=== PATIENT | male | born 1965 | race African-American/Black ===

== ENCOUNTER 2016-07-23 13:24 | Emergency (ER) | payer MEDICAID ==
[~2016-07-23] VITALS: Ht 172.7 cm; Wt 85.0 kg
[~2016-07-23 13:24] MED LIST: KEPPRA
[2016-07-23] MEDS ORDERED: FOLIC ACID 1 MG, THIAMINE HCL 100 MG, MVI, ADULT NO.1 10 ML in DEXTROSE 5% WATER 1,000 ML IV ONE ×4 (14:30)
[2016-07-23] MEDS ORDERED: SODIUM CHLORIDE 0.9% 1,000 ML IV ONE (14:30)
[2016-07-23 15:27] LABS: BASOPHILS % 0.7 % (0.0-2.0); EOSINOPHILS % 0.6 % (0.0-5.0); HEMOGLOBIN. 12.8 g/dL (14.0-18.0); LYMPHOCYTES % 46.1 % (20.0-50.0); MEAN CORPUSCULAR HEMOGLOBIN 33.2 pg (28.0-32.0); MEAN CORPUSCULAR HGB CONC 33.6 g/dL (31.0-37.0); MEAN CORPUSCULAR VOLUME 98.9 fL (80.0-94.0); MEAN PLATELET VOLUME 7.5 fl (7.4-10.4); MONOCYTES % 9.1 % (2.0-8.0); NEUTROPHILS % 43.5 % (40.0-76.0); PLATELET 175 x1000/uL (130-400); RED BLOOD CELL COUNT 3.85 mill/uL (4.7-6.1); RED CELL DISTRIBUTION WIDTH 16.7 % (11.6-14.6); WHITE BLOOD COUNT 3.4 x1000/uL (4.5-11.0)
[2016-07-23 15:30] LABS: CHLORIDE 110 mEq/L (98-107); INDEX HEMOLYSI 1 (1-3); INDEX ICTERIC 1 (1-4); INDEX LIPEMIC 1 (1-3)
[2016-07-23 15:39] LABS: ANION GAP 10; CALCIUM 8.5 mg/dL (8.5-10.1); CARBON DIOXIDE 29 mEq/L (21-32); UREA NITROGEN BLOOD 11 mg/dL (7-21); eGFR > 60 mL/min (>60)
[2016-07-23 15:46] LABS: ACETAMINOPHEN < 2 ug/mL (10-30)
[2016-07-23 15:55] LABS: ETHANOL BLOOD 391 mg/dL
[2016-07-23] MEDS ORDERED: PHENYTOIN SODIUM 1,000 MG in SODIUM CHLORIDE 0.9% 100 ML IV ONE (17:00)
[2016-07-23] MEDS ORDERED: PHENYTOIN SODIUM 1000MG in SODIUM CHLORIDE 0.9% 100ML IV NR (19:00)
[2016-07-23 20:07] LABS: *AMPHETAMINES SCREEN URINE NEGATIVE (NEGATIVE); *BARBITURATES SCREEN URINE NEGATIVE (NEGATIVE); *BENZODIAZEPINES SCREEN URINE NEGATIVE (NEGATIVE); *COCAINE SCREEN URINE NEGATIVE (NEGATIVE); CANNABINOID URINE SCREEN NEGATIVE (NEGATIVE); ECSTASY MDMA SCREEN URINE NEGATIVE (NEGATIVE); METHADONE URINE SCREEN NEGATIVE (NEGATIVE); OPIATES URINE SCREEN NEGATIVE (NEGATIVE); PHENCYCLIDINE URINE SCREEN NEGATIVE (NEGATIVE)
[2016-07-23 21:50] VITALS: BP 112/78
== END 2016-07-23 21:50 | disposition home or self-care (01) ==
LOC: ER 13:29
DX: G92 Toxic encephalopathy (principal); F10.129 Alcohol abuse with intoxication, unspecified; F17.200 Nicotine dependence, unspecified, uncomplicated; G40.909 Epilepsy, unspecified, not intractable, without status epilepticus; Y90.8 Blood alcohol level of 240 mg/100 ml or more; Z91.19 Patient's noncompliance with other medical treatment and regimen
CPT/HCPCS: 36415; 70450; 80048; 80185; 80305; 80329; 83735; 85025; 96365; 96366; 96367; 99285; G0482; J1165; J3411; J3490; J7030; J7070; 80307; J7050

== ENCOUNTER 2016-09-06 01:47 | Emergency (ER) | payer MEDICAID ==
[~2016-09-06] VITALS: Ht 167.6 cm; Wt 69.0 kg
[2016-09-06] MEDS ORDERED: LORAZEPAM 2MG/ML CPJ IV ONE (04:00)
[2016-09-06] MEDS ORDERED: LEVETIRACETAM 500MG PREMIX 100 ML IV ONE (04:00)
[2016-09-06 04:16] LABS: BASOPHILS % 0.9 % (0.0-2.0); EOSINOPHILS % 0.6 % (0.0-5.0); HEMATOCRIT. 41.1 % (42.0-52.0); HEMOGLOBIN. 13.7 g/dL (14.0-18.0); LYMPHOCYTES % 44.8 % (20.0-50.0); MEAN CORPUSCULAR HEMOGLOBIN 32.1 pg (28.0-32.0); MEAN CORPUSCULAR HGB CONC 33.4 g/dL (31.0-37.0); MEAN CORPUSCULAR VOLUME 96.1 fL (80.0-94.0); MEAN PLATELET VOLUME 7.3 fl (7.4-10.4); MONOCYTES % 3.5 % (2.0-8.0); NEUTROPHILS % 50.2 % (40.0-76.0); PLATELET 230 x1000/uL (130-400); RED BLOOD CELL COUNT 4.28 mill/uL (4.7-6.1); RED CELL DISTRIBUTION WIDTH 15.3 % (11.6-14.6); WHITE BLOOD COUNT 5.2 x1000/uL (4.5-11.0)
[2016-09-06 04:23] LABS: ALANINE AMINOTRANSFERASE 25 IU/L (13-61); ALBUMIN 3.7 g/dL (3.4-5.0); ANION GAP 20; CALCIUM 8.9 mg/dL (8.5-10.1); CARBON DIOXIDE 19 mEq/L (21-32); CHLORIDE 110 mEq/L (98-107); INDEX HEMOLYSI 1 (1-3); INDEX ICTERIC 1 (1-4); INDEX LIPEMIC 1 (1-3); UREA NITROGEN BLOOD 15 mg/dL (7-21); eGFR > 60 mL/min (>60)
[2016-09-06 06:01] VITALS: BP 104/64
== END 2016-09-06 06:01 | disposition home or self-care (01) ==
LOC: ER 04:05
DX: G40.89 Other seizures (principal); J45.909 Unspecified asthma, uncomplicated; F12.10 Cannabis abuse, uncomplicated; F17.200 Nicotine dependence, unspecified, uncomplicated
CPT/HCPCS: 36415; 80053; 85025; 96365; 96366; 96375; 99285; J1953; J2060; Z7610; 99284

== ENCOUNTER 2016-09-08 02:03 | Emergency (ER) | payer MEDICAID ==
[~2016-09-08] VITALS: Ht 167.6 cm; Wt 70.0 kg
[2016-09-08] MEDS ORDERED: ONDANSETRON HCL 4MG/2ML VIAL IV ONE (05:00)
[2016-09-08] MEDS ORDERED: LEVETIRACETAM 500MG PREMIX 100 ML IV ONE (05:00)
[2016-09-08] MEDS ORDERED: IBUPROFEN 600MG TABLET PO ONE (10:15)
[2016-09-08 10:35] VITALS: BP 110/69
== END 2016-09-08 12:09 | disposition home or self-care (01) ==
LOC: ER 02:05
DX: T51.0X1A Toxic effect of ethanol, accidental (unintentional), initial encounter (principal); G92 Toxic encephalopathy; I10 Essential (primary) hypertension; G40.909 Epilepsy, unspecified, not intractable, without status epilepticus; F32.9 Major depressive disorder, single episode, unspecified; F17.210 Nicotine dependence, cigarettes, uncomplicated; F12.10 Cannabis abuse, uncomplicated; Y90.8 Blood alcohol level of 240 mg/100 ml or more; Y92.488 Other paved roadways as the place of occurrence of the external cause
CPT/HCPCS: 36415; 96365; 96375; 99284; G0482; J1953; J2405; Z7610

== ENCOUNTER 2016-09-10 02:36 | Emergency (ER) | payer MEDICAID ==
[~2016-09-10] VITALS: Ht 167.6 cm; Wt 72.0 kg
[2016-09-10] MEDS ORDERED: LEVETIRACETAM 500MG TABLET PO ONE (06:15)
[2016-09-10 06:24] LABS: BASOPHILS % 0.6 % (0.0-2.0); EOSINOPHILS % 0.6 % (0.0-5.0); HEMATOCRIT. 38.1 % (42.0-52.0); HEMOGLOBIN. 12.8 g/dL (14.0-18.0); LYMPHOCYTES % 39.8 % (20.0-50.0); MEAN CORPUSCULAR HEMOGLOBIN 31.9 pg (28.0-32.0); MEAN CORPUSCULAR HGB CONC 33.6 g/dL (31.0-37.0); MEAN PLATELET VOLUME 7.7 fl (7.4-10.4); MONOCYTES % 8.6 % (2.0-8.0); NEUTROPHILS % 50.4 % (40.0-76.0); PLATELET 179 x1000/uL (130-400); RED BLOOD CELL COUNT 4.01 mill/uL (4.7-6.1); RED CELL DISTRIBUTION WIDTH 15.4 % (11.6-14.6); WHITE BLOOD COUNT 4.9 x1000/uL (4.5-11.0)
[2016-09-10 06:28] LABS: CLARITY URINE CLEAR (CLEAR); COLOR URINE YELLOW (YELLOW); GLUCOSE URINE NEGATIVE (NEGATIVE); KETONES URINE NEGATIVE (NEGATIVE); LEUKOCYTE ESTERASE URINE NEGATIVE (NEGATIVE); NITRITE URINE NEGATIVE (NEGATIVE); OCCULT BLOOD URINE TRACE (NEGATIVE); PH URINE 5.5 (4.5-8.0); PROTEIN URINE NEGATIVE (NEGATIVE); SPECIFIC GRAVITY URINE 1.004 (1.005-1.030); UROBILINOGEN URINE 0.2 E.U./dL (0.2-1.0)
[2016-09-10 06:34] LABS: ALANINE AMINOTRANSFERASE 27 IU/L (13-61); ALBUMIN 3.7 g/dL (3.4-5.0); ANION GAP 16; CALCIUM 9.5 mg/dL (8.5-10.1); CARBON DIOXIDE 27 mEq/L (21-32); CHLORIDE 106 mEq/L (98-107); INDEX HEMOLYSI 2 (1-3); INDEX ICTERIC 1 (1-4); INDEX LIPEMIC 1 (1-3); LIPASE 279 IU/L (73-393); UREA NITROGEN BLOOD 11 mg/dL (7-21); eGFR > 60 mL/min (>60)
[2016-09-10 06:45] LABS: BACTERIA URINE NONE SEEN; RBC URINE 0-2 /hpf (0-2); SQUAMOUS EPITHELIAL CELL URINE RARE /lpf (RARE/1+); WBC URINE 0-2 /hpf (0-2)
[2016-09-10 06:57] VITALS: BP 98/56
== END 2016-09-10 07:18 | disposition home or self-care (01) ==
LOC: ER 02:37
DX: R10.13 Epigastric pain (principal); J45.909 Unspecified asthma, uncomplicated; F17.200 Nicotine dependence, unspecified, uncomplicated
CPT/HCPCS: 36415; 80053; 81001; 83690; 85025; 99284; Z7610

== ENCOUNTER 2016-09-23 18:16 | Emergency (ER) | payer MEDICAID ==
[~2016-09-23] VITALS: Ht 175.3 cm; Wt 79.0 kg
[2016-09-23 19:11] VITALS: BP 123/68
[2016-09-23 19:33] LABS: EOSINOPHILS % 1.4 % (0.0-5.0); HEMATOCRIT. 38.7 % (42.0-52.0); LYMPHOCYTES % 45.3 % (20.0-50.0); MEAN CORPUSCULAR HEMOGLOBIN 31.8 pg (28.0-32.0); MEAN CORPUSCULAR HGB CONC 33.5 g/dL (31.0-37.0); MEAN PLATELET VOLUME 7.1 fl (7.4-10.4); MONOCYTES % 6.3 % (2.0-8.0); PLATELET 217 x1000/uL (130-400); RED BLOOD CELL COUNT 4.07 mill/uL (4.7-6.1); WHITE BLOOD COUNT 3.8 x1000/uL (4.5-11.0)
[2016-09-23 19:38] LABS: CHLORIDE 109 mEq/L (98-107)
[2016-09-23 19:40] LABS: INDEX HEMOLYSI 1 (1-3); INDEX ICTERIC 1 (1-4); INDEX LIPEMIC 1 (1-3); INR 1.1; PROTHROMBIN TIME 11.2 sec
[2016-09-23 19:41] LABS: CALCIUM 8.7 mg/dL (8.5-10.1)
[2016-09-23 19:45] LABS: ALANINE AMINOTRANSFERASE 17 IU/L (13-61); ALBUMIN 3.4 g/dL (3.4-5.0); ANION GAP 16; CARBON DIOXIDE 24 mEq/L (21-32); UREA NITROGEN BLOOD 11 mg/dL (7-21)
[2016-09-23 19:50] LABS: TROPONIN I < 0.02 ng/mL (0.00-0.04); eGFR > 60 mL/min (>60)
[2016-09-23] MEDS ORDERED: SODIUM CHLORIDE 0.45% 1,000 ML IV ONE (20:58)
[2016-09-23 21:12] LABS: CLARITY URINE CLEAR (CLEAR); COLOR URINE YELLOW (YELLOW); GLUCOSE URINE NEGATIVE (NEGATIVE); KETONES URINE NEGATIVE (NEGATIVE); LEUKOCYTE ESTERASE URINE NEGATIVE (NEGATIVE); NITRITE URINE NEGATIVE (NEGATIVE); OCCULT BLOOD URINE TRACE (NEGATIVE); PH URINE 5.5 (4.5-8.0); PROTEIN URINE NEGATIVE (NEGATIVE); SPECIFIC GRAVITY URINE 1.011 (1.005-1.030); UROBILINOGEN URINE 0.2 E.U./dL (0.2-1.0)
[2016-09-23 21:38] LABS: *AMPHETAMINES SCREEN URINE NEGATIVE (NEGATIVE); *BARBITURATES SCREEN URINE NEGATIVE (NEGATIVE); *BENZODIAZEPINES SCREEN URINE NEGATIVE (NEGATIVE); *COCAINE SCREEN URINE NEGATIVE (NEGATIVE); CANNABINOID URINE SCREEN NEGATIVE (NEGATIVE); ECSTASY MDMA SCREEN URINE NEGATIVE (NEGATIVE); METHADONE URINE SCREEN NEGATIVE (NEGATIVE); OPIATES URINE SCREEN NEGATIVE (NEGATIVE); PHENCYCLIDINE URINE SCREEN NEGATIVE (NEGATIVE)
[2016-09-23 21:47] LABS: SQUAMOUS EPITHELIAL CELL URINE FEW /lpf (RARE/1+)
[2016-09-23 21:48] LABS: BACTERIA URINE TRACE; WBC URINE 0-2 /hpf (0-2)
[2016-09-23 21:51] LABS: RBC URINE 0-2 /hpf (0-2)
== END 2016-09-23 21:36 | disposition left against medical advice (07) ==
LOC: ER 18:22
DX: M54.10 Radiculopathy, site unspecified (principal); E86.0 Dehydration; I10 Essential (primary) hypertension; G40.909 Epilepsy, unspecified, not intractable, without status epilepticus; J45.909 Unspecified asthma, uncomplicated; F32.9 Major depressive disorder, single episode, unspecified; D72.819 Decreased white blood cell count, unspecified; D64.9 Anemia, unspecified
CPT/HCPCS: 36415; 70450; 71010; 72125; 73110; 73130; 80053; 80305; 81001; 84484; 85025; 85610; 93005; 99285; G0482; Z7610

== ENCOUNTER 2016-10-12 01:49 | Emergency (ER) | payer MEDICAID ==
[~2016-10-12] VITALS: Ht 167.6 cm; Wt 73.0 kg
[2016-10-12] MEDS ORDERED: KETOROLAC 30MG/ML VIAL IV ONE (07:30)
[2016-10-12] MEDS ORDERED: LEVETIRACETAM 500MG PREMIX 100 ML IV ONE (07:30)
[2016-10-12] MEDS ORDERED: SODIUM CHLORIDE 0.9% 1,000 ML IV ONE (07:30)
[2016-10-12 10:43] VITALS: BP 127/76
[2016-10-12] MEDS ORDERED: LEVETIRACETAM 500MG in SODIUM CHLORIDE 0.9% 100ML IV NR (19:00)
== END 2016-10-12 14:00 | disposition home or self-care (01) ==
LOC: ER 07:19
DX: G40.909 Epilepsy, unspecified, not intractable, without status epilepticus (principal); R51 Headache; F17.210 Nicotine dependence, cigarettes, uncomplicated; F12.10 Cannabis abuse, uncomplicated
CPT/HCPCS: 96365; 96366; 96375; 99285; J1885; J1953; J7030; J7050

== ENCOUNTER 2016-10-17 01:06 | Emergency (ER) | payer MEDICAID ==
[~2016-10-17] VITALS: Ht 167.6 cm; Wt 74.0 kg
[2016-10-17] MEDS ORDERED: MORPHINE SULFATE 4 MG/ML CPJ (NOT FOR IM USE) IV STA (01:56)
[2016-10-17] MEDS ORDERED: ONDANSETRON HCL 4MG/2ML VIAL IV STA (01:56)
[2016-10-17] MEDS ORDERED: SODIUM CHLORIDE 0.9% 1,000 ML IV ONE (01:56)
[2016-10-17] MEDS ORDERED: LEVETIRACETAM 500MG PREMIX 100 ML IV ONE (02:00)
[2016-10-17] MEDS ORDERED: LORAZEPAM 2MG/ML CPJ IV ONE (02:00)
[2016-10-17 02:46] LABS: BASOPHILS % 0.8 % (0.0-2.0); EOSINOPHILS % 0.7 % (0.0-5.0); HEMATOCRIT. 39.9 % (42.0-52.0); HEMOGLOBIN. 13.6 g/dL (14.0-18.0); LYMPHOCYTES % 44.2 % (20.0-50.0); MEAN CORPUSCULAR HEMOGLOBIN 32.8 pg (28.0-32.0); MEAN CORPUSCULAR VOLUME 96.4 fL (80.0-94.0); MEAN PLATELET VOLUME 7.4 fl (7.4-10.4); MONOCYTES % 8.6 % (2.0-8.0); NEUTROPHILS % 45.7 % (40.0-76.0); PLATELET 162 x1000/uL (130-400); RED BLOOD CELL COUNT 4.14 mill/uL (4.7-6.1); RED CELL DISTRIBUTION WIDTH 16.5 % (11.6-14.6)
[2016-10-17 02:52] LABS: CHLORIDE 111 mEq/L (98-107)
[2016-10-17 03:01] LABS: CARBON DIOXIDE 26 mEq/L (21-32)
[2016-10-17 10:00] VITALS: BP 119/66
== END 2016-10-17 10:29 | disposition home or self-care (01) ==
LOC: ER 01:06
DX: R56.9 Unspecified convulsions (principal); F10.129 Alcohol abuse with intoxication, unspecified; I10 Essential (primary) hypertension; F12.10 Cannabis abuse, uncomplicated; W01.198A Fall on same level from slipping, tripping and stumbling with subsequent striking against other object, initial encounter; Y93.89 Activity, other specified; Y92.89 Other specified places as the place of occurrence of the external cause; Y99.8 Other external cause status
CPT/HCPCS: 36415; 70450; 71010; 80053; 85025; 96365; 96375; 99285; J1953; J2060; J2270; J2405; J7030; Z7610

== ENCOUNTER 2016-10-18 01:07 | Emergency (ER) | payer MEDICAID ==
[~2016-10-18] VITALS: Ht 167.6 cm; Wt 70.0 kg
[~2016-10-18 01:07] MED LIST changes: -KEPPRA; +KEPPRA PO
[2016-10-18 01:09] VITALS: BP 136/78
[2016-10-18 06:32] LABS: CHLORIDE 112 mEq/L (98-107)
[2016-10-18 06:35] LABS: EOSINOPHILS % 1.7 % (0.0-5.0); HEMATOCRIT. 36.9 % (42.0-52.0); HEMOGLOBIN. 12.7 g/dL (14.0-18.0); LYMPHOCYTES % 68.1 % (20.0-50.0); MEAN CORPUSCULAR HEMOGLOBIN 32.8 pg (28.0-32.0); MEAN CORPUSCULAR VOLUME 95.5 fL (80.0-94.0); MEAN PLATELET VOLUME 7.7 fl (7.4-10.4); MONOCYTES % 4.9 % (2.0-8.0); NEUTROPHILS % 24.3 % (40.0-76.0); PLATELET 165 x1000/uL (130-400); RED BLOOD CELL COUNT 3.86 mill/uL (4.7-6.1); RED CELL DISTRIBUTION WIDTH 16.3 % (11.6-14.6)
[2016-10-18 06:39] LABS: CARBON DIOXIDE 27 mEq/L (21-32)
[2016-10-18 07:07] LABS: ETHANOL BLOOD 351 mg/dL
[2016-10-18 08:19] LABS: CLARITY URINE CLEAR (CLEAR); COLOR URINE YELLOW (YELLOW); GLUCOSE URINE NEGATIVE (NEGATIVE); KETONES URINE NEGATIVE (NEGATIVE); LEUKOCYTE ESTERASE URINE NEGATIVE (NEGATIVE); NITRITE URINE NEGATIVE (NEGATIVE); OCCULT BLOOD URINE NEGATIVE (NEGATIVE); PH URINE 5.5 (4.5-8.0); PROTEIN URINE NEGATIVE (NEGATIVE); SPECIFIC GRAVITY URINE 1.008 (1.005-1.030); UROBILINOGEN URINE 0.2 E.U./dL (0.2-1.0)
[2016-10-18] MEDS ORDERED: SODIUM CHLORIDE 0.9% 1,000 ML IV ONE (08:25)
[2016-10-18 08:36] LABS: *AMPHETAMINES SCREEN URINE NEGATIVE (NEGATIVE); *BARBITURATES SCREEN URINE NEGATIVE (NEGATIVE); *BENZODIAZEPINES SCREEN URINE NEGATIVE (NEGATIVE); *COCAINE SCREEN URINE NEGATIVE (NEGATIVE); CANNABINOID URINE SCREEN NEGATIVE (NEGATIVE); METHADONE URINE SCREEN NEGATIVE (NEGATIVE); OPIATES URINE SCREEN NEGATIVE (NEGATIVE); PHENCYCLIDINE URINE SCREEN NEGATIVE (NEGATIVE)
== END 2016-10-18 09:37 | disposition left against medical advice (07) ==
LOC: ER 01:15
DX: R11.2 Nausea with vomiting, unspecified (principal); I10 Essential (primary) hypertension; J45.909 Unspecified asthma, uncomplicated
CPT/HCPCS: 36415; 80053; 80305; 81003; 85025; 96360; 99284; G0482; J7030; Z7610

== ENCOUNTER 2016-10-29 02:26 | Emergency (ER) | payer MEDICAID ==
[~2016-10-29] VITALS: Ht 167.6 cm; Wt 75.0 kg
[2016-10-29] MEDS: SODIUM CHLORIDE 0.9% 1,000 ML IV ONE (03:59)
[2016-10-29] MEDS: LORAZEPAM 2MG/ML CPJ IV ONE (04:08)
[2016-10-29] MEDS: LEVETIRACETAM 500MG PREMIX 100 ML IV ONE (04:08)
[2016-10-29] MEDS: FAMOTIDINE 20MG/2ML VIAL IV ONE (04:08)
[2016-10-29 04:09] LABS: PROTHROMBIN TIME 10.5 sec
[2016-10-29 04:12] LABS: HEMATOCRIT. 39.5 % (42.0-52.0); HEMOGLOBIN. 13.6 g/dL (14.0-18.0); MEAN CORPUSCULAR HEMOGLOBIN 32.3 pg (28.0-32.0); MEAN CORPUSCULAR VOLUME 94.3 fL (80.0-94.0); MEAN PLATELET VOLUME 8.3 fl (7.4-10.4); PLATELET 95 x1000/uL (130-400); RED BLOOD CELL COUNT 4.19 mill/uL (4.7-6.1); RED CELL DISTRIBUTION WIDTH 16.5 % (11.6-14.6)
[2016-10-29 04:16] LABS: CLARITY URINE CLEAR (CLEAR); COLOR URINE YELLOW (YELLOW); GLUCOSE URINE NEGATIVE (NEGATIVE); KETONES URINE NEGATIVE (NEGATIVE); LEUKOCYTE ESTERASE URINE NEGATIVE (NEGATIVE); NITRITE URINE NEGATIVE (NEGATIVE); OCCULT BLOOD URINE TRACE (NEGATIVE); PH URINE 5.5 (4.5-8.0); PROTEIN URINE 1+ (NEGATIVE); SPECIFIC GRAVITY URINE 1.006 (1.005-1.030); UROBILINOGEN URINE 0.2 E.U./dL (0.2-1.0)
[2016-10-29 04:18] LABS: AMMONIA 44 uMol/L (<32)
[2016-10-29 04:24] LABS: CARBON DIOXIDE 22 mEq/L (21-32); CHLORIDE 103 mEq/L (98-107); CREATINE KINASE 876 IU/L (39-308); ETHANOL BLOOD 266 mg/dL; TROPONIN I < 0.02 ng/mL (0.00-0.04)
[2016-10-29 04:25] LABS: BASOPHILS % 0.6 % (0.0-2.0); LYMPHOCYTES % 46.5 % (20.0-50.0); MONOCYTES % 11.3 % (2.0-8.0); NEUTROPHILS % 40.6 % (40.0-76.0)
[2016-10-29 04:26] LABS: PLATELET ESTIMATE DECREASED
[2016-10-29 04:27] LABS: *AMPHETAMINES SCREEN URINE NEGATIVE (NEGATIVE); *BARBITURATES SCREEN URINE NEGATIVE (NEGATIVE); *BENZODIAZEPINES SCREEN URINE NEGATIVE (NEGATIVE); *COCAINE SCREEN URINE NEGATIVE (NEGATIVE); CANNABINOID URINE SCREEN NEGATIVE (NEGATIVE); METHADONE URINE SCREEN NEGATIVE (NEGATIVE); OPIATES URINE SCREEN NEGATIVE (NEGATIVE); PHENCYCLIDINE URINE SCREEN NEGATIVE (NEGATIVE)
[2016-10-29 04:33] LABS: CARBAMAZEPINE < 0.5 ug/mL (4-12); PHENOBARBITAL < 2.1 ug/mL (15.0-40.0); PHENYTOIN < 0.4 ug/mL (10-20); VALPROIC ACID < 3.0 ug/mL (50-100)
[2016-10-29 05:30] VITALS: BP 118/84
== END 2016-10-29 07:21 | disposition home or self-care (01) ==
LOC: ER 02:27
DX: T51.0X1A Toxic effect of ethanol, accidental (unintentional), initial encounter (principal); K29.70 Gastritis, unspecified, without bleeding; M62.82 Rhabdomyolysis; I10 Essential (primary) hypertension; R07.9 Chest pain, unspecified; F17.200 Nicotine dependence, unspecified, uncomplicated; Y92.89 Other specified places as the place of occurrence of the external cause
CPT/HCPCS: 36415; 71010; 80053; 80156; 80165; 80184; 80185; 80305; 81001; 82140; 82550; 83880; 84443; 84484; 85025; 85610; 93005; 96365; 96375; 99285; G0482; J1953; J2060; J3490; J7030

== ENCOUNTER 2016-10-29 12:04 | Emergency (ER) | payer MEDICAID ==
[~2016-10-29] VITALS: Ht 170.2 cm; Wt 70.0 kg
[~2016-10-29 12:04] MED LIST changes: +KEPPRA; -KEPPRA PO
[2016-10-29 12:07] VITALS: BP 112/87
== END 2016-10-29 15:12 | disposition left against medical advice (07) ==
LOC: ER 12:10
DX: Z53.21 Procedure and treatment not carried out due to patient leaving prior to being seen by health care provider (principal)

== ENCOUNTER 2016-11-13 13:14 | Inpatient (IN) | payer MEDICAID ==
[~2016-11-13] VITALS: Ht 167.6 cm; Wt 64.4 kg
[~2016-11-13 13:14] MED LIST changes: -KEPPRA; +KEPPRA PO
[2016-11-13] MEDS ORDERED: NITROGLYCERIN OINT 1GM/INCH UDPKT TD STA (14:25)
[2016-11-13] MEDS ORDERED: ASPIRIN 81MG TABLET PO STA (14:25)
[2016-11-13 14:56] LABS: BASOPHILS % 1.2 % (0.0-2.0); EOSINOPHILS % 0.9 % (0.0-5.0); HEMATOCRIT. 36.8 % (42.0-52.0); HEMOGLOBIN. 12.4 g/dL (14.0-18.0); LYMPHOCYTES % 33.4 % (20.0-50.0); MEAN CORPUSCULAR HEMOGLOBIN 32.1 pg (28.0-32.0); MEAN CORPUSCULAR VOLUME 95.6 fL (80.0-94.0); MONOCYTES % 4.4 % (2.0-8.0); NEUTROPHILS % 60.1 % (40.0-76.0); PLATELET 241 x1000/uL (130-400); RED BLOOD CELL COUNT 3.86 mill/uL (4.7-6.1); RED CELL DISTRIBUTION WIDTH 17.7 % (11.6-14.6)
[2016-11-13 15:02] LABS: CHLORIDE 109 mEq/L (98-107)
[2016-11-13 15:03] LABS: INR 1.1; PARTIAL THROMBOPLASTIN TIME 29.9 sec (24.0-34.0)
[2016-11-13 15:05] LABS: CARBON DIOXIDE 26 mEq/L (21-32)
[2016-11-13 15:08] LABS: ETHANOL BLOOD 213 mg/dL
[2016-11-13 15:15] LABS: CREATINE KINASE 447 IU/L (39-308); CREATINE KINASE MB FRACTION 0.8 ng/mL (0.5-3.6); TROPONIN I < 0.02 ng/mL (0.00-0.04)
[2016-11-13 22:15] VITALS: BP 135/94
[2016-11-13 22:17] VITALS: BP 135/94
[2016-11-13] MEDS ORDERED: CLONIDINE 0.1MG TABLET PO PRN (23:15)
[2016-11-13] MEDS ORDERED: ONDANSETRON HCL 4MG/2ML VIAL IV PRN (23:15)
[2016-11-13] MEDS ORDERED: LORAZEPAM 2MG/ML CPJ IV PRN (23:30)
[2016-11-13] MEDS ORDERED: MORPHINE SULFATE 4 MG/ML CPJ (NOT FOR IM USE) IV PRN (23:30)
[2016-11-13] MEDS: ZOLPIDEM TARTRATE 5MG TABLET PO PRN (23:47)
[2016-11-14 00:48] VITALS: BP 127/86
[2016-11-14 00:48] LABS: CREATINE KINASE 361 IU/L (39-308); CREATINE KINASE MB FRACTION 0.9 ng/mL (0.5-3.6); TROPONIN I < 0.02 ng/mL (0.00-0.04)
[2016-11-14 04:00] VITALS: BP 116/71
[2016-11-14 06:30] LABS: HEMATOCRIT 33.9 % (42.0-52.0); HEMOGLOBIN 11.6 g/dL (14.0-18.0); MEAN CORPUSCULAR HEMOGLOBIN 32.7 pg (28.0-32.0); MEAN CORPUSCULAR VOLUME 95.6 fL (80.0-94.0); PLATELET 228 x1000/uL (130-400); RED BLOOD CELL COUNT 3.55 mill/uL (4.7-6.1); RED CELL DISTRIBUTION WIDTH 17.1 % (11.6-14.6)
[2016-11-14 07:07] LABS: CARBON DIOXIDE 24 mEq/L (21-32); CHLORIDE 106 mEq/L (98-107); CREATINE KINASE 330 IU/L (39-308); TROPONIN I < 0.02 ng/mL (0.00-0.04)
[2016-11-14 08:00] VITALS: BP 111/69
[2016-11-14] MEDS: ASPIRIN 81MG TABLET PO SCH (08:06)
[2016-11-14] MEDS: LEVETIRACETAM 500MG TABLET PO SCH (08:06)
[2016-11-14] MEDS: ENOXAPARIN 40MG/0.4ML SYR SUBCUT SCH (08:07)
[2016-11-14 12:00] VITALS: BP 115/76
[2016-11-14 13:49] LABS: AMMONIA 23 uMol/L (<32)
[2016-11-14 16:00] VITALS: BP 118/80
[2016-11-14 20:00] VITALS: BP 116/76
[2016-11-14 21:38] LABS: *AMPHETAMINES SCREEN URINE NEGATIVE (NEGATIVE); *BARBITURATES SCREEN URINE NEGATIVE (NEGATIVE); *BENZODIAZEPINES SCREEN URINE PRESUMTIVE POSITIVE (NEGATIVE); *COCAINE SCREEN URINE NEGATIVE (NEGATIVE); CANNABINOID URINE SCREEN NEGATIVE (NEGATIVE); METHADONE URINE SCREEN NEGATIVE (NEGATIVE); OPIATES URINE SCREEN NEGATIVE (NEGATIVE); PHENCYCLIDINE URINE SCREEN NEGATIVE (NEGATIVE)
[2016-11-14] MEDS: ZOLPIDEM TARTRATE 5MG TABLET PO PRN (22:06)
[2016-11-15 00:28] VITALS: BP 125/88
[2016-11-15 04:00] VITALS: BP 129/86
[2016-11-15 08:00] VITALS: BP 126/84
[2016-11-15] MEDS: LEVETIRACETAM 500MG TABLET PO SCH (08:25)
[2016-11-15] MEDS: ENOXAPARIN 40MG/0.4ML SYR SUBCUT SCH (08:25)
[2016-11-15] MEDS: ASPIRIN 81MG TABLET PO SCH (08:25)
[2016-11-15 11:38] VITALS: BP 106/68
[2016-11-15 15:19] VITALS: BP 106/68
== END 2016-11-15 16:00 | disposition home or self-care (01) | DRG 775 ==
LOC: ER 13:24 → EDBEDREQ 15:13 → 5WST 19:50 → ENRESERV 20:26
PROVIDERS: ADMIT Hospitalist; ATTEND Hospitalist
DX: F10.229 Alcohol dependence with intoxication, unspecified (principal); F10.239 Alcohol dependence with withdrawal, unspecified; I10 Essential (primary) hypertension; R07.89 Other chest pain; F12.90 Cannabis use, unspecified, uncomplicated; F17.200 Nicotine dependence, unspecified, uncomplicated; G40.909 Epilepsy, unspecified, not intractable, without status epilepticus; J45.909 Unspecified asthma, uncomplicated; T51.0X1A Toxic effect of ethanol, accidental (unintentional), initial encounter
CPT/HCPCS: 36415; 71010; 80048; 80053; 80305; 82140; 82550; 82553; 83690; 83735; 83880; 84484; 85025; 85027; 85610; 85730; 93005; 99285; G0482; J1650; J2270

== ENCOUNTER 2016-11-17 02:49 | Emergency (ER) | payer MEDICAID ==
[~2016-11-17] VITALS: Ht 165.1 cm; Wt 50.0 kg
[2016-11-17] MEDS ORDERED: SODIUM CHLORIDE 0.9% 1,000 ML IV ONE (04:24)
[2016-11-17] MEDS ORDERED: LEVETIRACETAM 500MG/5ML CUP PO ONE (04:30)
[2016-11-17] MEDS ORDERED: LORAZEPAM 2MG/ML CPJ IV ONE (04:30)
[2016-11-17 05:04] LABS: EOSINOPHILS % 1.6 % (0.0-5.0); HEMATOCRIT. 37.2 % (42.0-52.0); HEMOGLOBIN. 12.4 g/dL (14.0-18.0); LYMPHOCYTES % 47.4 % (20.0-50.0); MEAN CORPUSCULAR HEMOGLOBIN 31.8 pg (28.0-32.0); MEAN CORPUSCULAR VOLUME 95.7 fL (80.0-94.0); MEAN PLATELET VOLUME 7.3 fl (7.4-10.4); MONOCYTES % 8.1 % (2.0-8.0); NEUTROPHILS % 41.9 % (40.0-76.0); PLATELET 219 x1000/uL (130-400); RED BLOOD CELL COUNT 3.89 mill/uL (4.7-6.1); RED CELL DISTRIBUTION WIDTH 17.2 % (11.6-14.6)
[2016-11-17 05:23] LABS: CHLORIDE 108 mEq/L (98-107)
[2016-11-17 05:34] LABS: CARBON DIOXIDE 24 mEq/L (21-32); ETHANOL BLOOD 207 mg/dL
[2016-11-17 06:54] LABS: CLARITY URINE CLEAR (CLEAR); COLOR URINE YELLOW (YELLOW); GLUCOSE URINE NEGATIVE (NEGATIVE); KETONES URINE NEGATIVE (NEGATIVE); LEUKOCYTE ESTERASE URINE NEGATIVE (NEGATIVE); NITRITE URINE NEGATIVE (NEGATIVE); OCCULT BLOOD URINE TRACE (NEGATIVE); PROTEIN URINE NEGATIVE (NEGATIVE); SPECIFIC GRAVITY URINE 1.013 (1.005-1.030); UROBILINOGEN URINE 0.2 E.U./dL (0.2-1.0)
[2016-11-17 07:23] LABS: *AMPHETAMINES SCREEN URINE NEGATIVE (NEGATIVE); *BARBITURATES SCREEN URINE NEGATIVE (NEGATIVE); *BENZODIAZEPINES SCREEN URINE PRESUMTIVE POSITIVE (NEGATIVE); *COCAINE SCREEN URINE NEGATIVE (NEGATIVE); CANNABINOID URINE SCREEN NEGATIVE (NEGATIVE); METHADONE URINE SCREEN NEGATIVE (NEGATIVE); OPIATES URINE SCREEN NEGATIVE (NEGATIVE); PHENCYCLIDINE URINE SCREEN NEGATIVE (NEGATIVE)
[2016-11-17 17:41] VITALS: BP 140/86
== END 2016-11-17 18:00 | disposition home or self-care (01) ==
LOC: ER 02:49
DX: T51.0X1A Toxic effect of ethanol, accidental (unintentional), initial encounter (principal); R41.82 Altered mental status, unspecified; R45.851 Suicidal ideations; I10 Essential (primary) hypertension; J45.909 Unspecified asthma, uncomplicated; G40.909 Epilepsy, unspecified, not intractable, without status epilepticus; F12.10 Cannabis abuse, uncomplicated; Y90.7 Blood alcohol level of 200-239 mg/100 ml; Y92.488 Other paved roadways as the place of occurrence of the external cause
CPT/HCPCS: 36415; 70450; 71010; 80053; 80305; 80307; 80329; 81001; 85025; 93005; 96361; 96374; 99285; G0482; J2060; J7030; Z7610

== ENCOUNTER 2016-11-19 22:33 | Emergency (ER) | payer MEDICAID ==
[~2016-11-19] VITALS: Ht 175.3 cm; Wt 64.0 kg
[2016-11-20 00:34] LABS: HEMATOCRIT. 41.7 % (42.0-52.0); HEMOGLOBIN. 13.9 g/dL (14.0-18.0); MEAN CORPUSCULAR HEMOGLOBIN 32.3 pg (28.0-32.0); MEAN CORPUSCULAR VOLUME 96.9 fL (80.0-94.0); MEAN PLATELET VOLUME 7.6 fl (7.4-10.4); PLATELET 182 x1000/uL (130-400); RED CELL DISTRIBUTION WIDTH 17.9 % (11.6-14.6)
[2016-11-20 00:43] LABS: CLARITY URINE CLEAR (CLEAR); COLOR URINE YELLOW (YELLOW); GLUCOSE URINE NEGATIVE (NEGATIVE); KETONES URINE NEGATIVE (NEGATIVE); LEUKOCYTE ESTERASE URINE NEGATIVE (NEGATIVE); NITRITE URINE NEGATIVE (NEGATIVE); OCCULT BLOOD URINE TRACE (NEGATIVE); PH URINE 5.5 (4.5-8.0); PROTEIN URINE NEGATIVE (NEGATIVE); SPECIFIC GRAVITY URINE 1.005 (1.005-1.030); UROBILINOGEN URINE 0.2 E.U./dL (0.2-1.0)
[2016-11-20 00:58] LABS: *AMPHETAMINES SCREEN URINE NEGATIVE (NEGATIVE); *BARBITURATES SCREEN URINE NEGATIVE (NEGATIVE); *BENZODIAZEPINES SCREEN URINE PRESUMTIVE POSITIVE (NEGATIVE); *COCAINE SCREEN URINE NEGATIVE (NEGATIVE); CANNABINOID URINE SCREEN NEGATIVE (NEGATIVE); METHADONE URINE SCREEN NEGATIVE (NEGATIVE); OPIATES URINE SCREEN NEGATIVE (NEGATIVE); PHENCYCLIDINE URINE SCREEN NEGATIVE (NEGATIVE)
[2016-11-20 01:02] LABS: CARBON DIOXIDE 26 mEq/L (21-32); CHLORIDE 108 mEq/L (98-107)
[2016-11-20 01:16] LABS: ETHANOL BLOOD 317 mg/dL
[2016-11-20 01:22] LABS: PLATELET ESTIMATE NORMAL
[2016-11-20] MEDS ORDERED: ACETAMINOPHEN 325MG TABLET PO ONE ×2 (06:00→07:30)
[2016-11-20 07:38] VITALS: BP 126/84
== END 2016-11-20 08:04 | disposition home or self-care (01) ==
LOC: ER 22:43
DX: S09.90XA Unspecified injury of head, initial encounter (principal); F10.129 Alcohol abuse with intoxication, unspecified; J45.909 Unspecified asthma, uncomplicated; F12.90 Cannabis use, unspecified, uncomplicated; I10 Essential (primary) hypertension; Z59.0 Homelessness; W01.0XXA Fall on same level from slipping, tripping and stumbling without subsequent striking against object, initial encounter; Y93.89 Activity, other specified; Y92.89 Other specified places as the place of occurrence of the external cause; Y99.8 Other external cause status
CPT/HCPCS: 36415; 70450; 80053; 80305; 81001; 85025; 99285; G0482; Z7610

== ENCOUNTER 2016-11-20 12:40 | Emergency (ER) | payer MEDICAID ==
[~2016-11-20] VITALS: Ht 167.6 cm; Wt 70.0 kg
[2016-11-20] MEDS ORDERED: LEVETIRACETAM 500MG TABLET PO ONE (14:30)
[2016-11-20 17:26] VITALS: BP 102/71
== END 2016-11-20 17:27 | disposition home or self-care (01) ==
LOC: ER 12:41
DX: S00.83XA Contusion of other part of head, initial encounter (principal); F10.129 Alcohol abuse with intoxication, unspecified; R56.9 Unspecified convulsions; J45.909 Unspecified asthma, uncomplicated; I10 Essential (primary) hypertension; F12.10 Cannabis abuse, uncomplicated; F17.200 Nicotine dependence, unspecified, uncomplicated; X58.XXXA Exposure to other specified factors, initial encounter; Y93.89 Activity, other specified; Y99.8 Other external cause status; Y92.89 Other specified places as the place of occurrence of the external cause
CPT/HCPCS: 36415; 82962; 99284; G0482; Z7610

== ENCOUNTER 2016-11-20 22:46 | Emergency (ER) | payer MEDICAID ==
[~2016-11-20] VITALS: Ht 175.3 cm; Wt 68.0 kg
[2016-11-21 00:32] LABS: EOSINOPHILS % 1.1 % (0.0-5.0); HEMATOCRIT. 44.5 % (42.0-52.0); HEMOGLOBIN. 14.8 g/dL (14.0-18.0); LYMPHOCYTES % 53.4 % (20.0-50.0); MEAN CORPUSCULAR HEMOGLOBIN 31.9 pg (28.0-32.0); MEAN CORPUSCULAR VOLUME 95.9 fL (80.0-94.0); MEAN PLATELET VOLUME 7.2 fl (7.4-10.4); NEUTROPHILS % 37.5 % (40.0-76.0); PLATELET 205 x1000/uL (130-400); RED BLOOD CELL COUNT 4.64 mill/uL (4.7-6.1); RED CELL DISTRIBUTION WIDTH 17.7 % (11.6-14.6)
[2016-11-21 00:37] LABS: CLARITY URINE CLEAR (CLEAR); COLOR URINE YELLOW (YELLOW); GLUCOSE URINE NEGATIVE (NEGATIVE); KETONES URINE NEGATIVE (NEGATIVE); LEUKOCYTE ESTERASE URINE NEGATIVE (NEGATIVE); NITRITE URINE NEGATIVE (NEGATIVE); OCCULT BLOOD URINE NEGATIVE (NEGATIVE); PROTEIN URINE NEGATIVE (NEGATIVE); SPECIFIC GRAVITY URINE 1.005 (1.005-1.030); UROBILINOGEN URINE 0.2 E.U./dL (0.2-1.0)
[2016-11-21 00:43] LABS: CARBON DIOXIDE 28 mEq/L (21-32); CHLORIDE 108 mEq/L (98-107)
[2016-11-21 00:56] LABS: *AMPHETAMINES SCREEN URINE NEGATIVE (NEGATIVE); *BARBITURATES SCREEN URINE NEGATIVE (NEGATIVE); *BENZODIAZEPINES SCREEN URINE PRESUMTIVE POSITIVE (NEGATIVE); *COCAINE SCREEN URINE NEGATIVE (NEGATIVE); CANNABINOID URINE SCREEN NEGATIVE (NEGATIVE); METHADONE URINE SCREEN NEGATIVE (NEGATIVE); OPIATES URINE SCREEN NEGATIVE (NEGATIVE); PHENCYCLIDINE URINE SCREEN NEGATIVE (NEGATIVE)
[2016-11-21 01:17] LABS: ETHANOL BLOOD 321 mg/dL
[2016-11-21] MEDS ORDERED: LEVETIRACETAM 500MG TABLET PO ONE (02:30)
[2016-11-21] MEDS ORDERED: ACETAMINOPHEN 325MG TABLET PO ONE (03:30)
[2016-11-21 12:11] VITALS: BP 102/78
== END 2016-11-21 12:21 | disposition home or self-care (01) ==
LOC: ER 22:55
DX: R45.851 Suicidal ideations (principal); F10.129 Alcohol abuse with intoxication, unspecified; R45.850 Homicidal ideations; R44.1 Visual hallucinations; R44.0 Auditory hallucinations; F12.10 Cannabis abuse, uncomplicated; J45.909 Unspecified asthma, uncomplicated; I10 Essential (primary) hypertension; R56.9 Unspecified convulsions
CPT/HCPCS: 36415; 80048; 80305; 80307; 80329; 81003; 82542; 85025; 99284; G0482

== ENCOUNTER 2016-11-23 13:23 | Emergency (ER) | payer MEDICAID ==
[~2016-11-23] VITALS: Ht 165.1 cm; Wt 75.0 kg
[2016-11-23 14:27] LABS: BASOPHILS % 0.8 % (0.0-2.0); HEMOGLOBIN. 13.4 g/dL (14.0-18.0); LYMPHOCYTES % 51.2 % (20.0-50.0); MEAN CORPUSCULAR HEMOGLOBIN 32.8 pg (28.0-32.0); MEAN CORPUSCULAR VOLUME 95.4 fL (80.0-94.0); MONOCYTES % 7.7 % (2.0-8.0); NEUTROPHILS % 39.3 % (40.0-76.0); PLATELET 173 x1000/uL (130-400); RED BLOOD CELL COUNT 4.09 mill/uL (4.7-6.1); RED CELL DISTRIBUTION WIDTH 17.8 % (11.6-14.6)
[2016-11-23 14:31] LABS: CHLORIDE 113 mEq/L (98-107)
[2016-11-23 14:37] LABS: CARBON DIOXIDE 27 mEq/L (21-32)
[2016-11-23 14:52] LABS: ETHANOL BLOOD 318 mg/dL
[2016-11-23 14:58] LABS: INR 1.1; PROTHROMBIN TIME 11.9 sec
[2016-11-23 15:02] LABS: CLARITY URINE CLEAR (CLEAR); COLOR URINE YELLOW (YELLOW); KETONES URINE TRACE (NEGATIVE); LEUKOCYTE ESTERASE URINE NEGATIVE (NEGATIVE); NITRITE URINE NEGATIVE (NEGATIVE); OCCULT BLOOD URINE 1+ (NEGATIVE); PROTEIN URINE 1+ (NEGATIVE); SPECIFIC GRAVITY URINE 1.015 (1.005-1.030); UROBILINOGEN URINE 0.2 E.U./dL (0.2-1.0)
[2016-11-23 15:16] LABS: HEMATOCRIT 38.2 % (42.0-52.0); HEMOGLOBIN 13.2 g/dL (14.0-18.0); MEAN CORPUSCULAR HEMOGLOBIN 32.8 pg (28.0-32.0); MEAN CORPUSCULAR VOLUME 95.3 fL (80.0-94.0); PLATELET 171 x1000/uL (130-400); RED BLOOD CELL COUNT 4.01 mill/uL (4.7-6.1); RED CELL DISTRIBUTION WIDTH 17.8 % (11.6-14.6)
[2016-11-23] MEDS ORDERED: SODIUM CHLORIDE 0.9% 1,000 ML IV ONE (15:30)
[2016-11-23 15:31] LABS: *AMPHETAMINES SCREEN URINE NEGATIVE (NEGATIVE); *BARBITURATES SCREEN URINE NEGATIVE (NEGATIVE); *BENZODIAZEPINES SCREEN URINE PRESUMTIVE POSITIVE (NEGATIVE); *COCAINE SCREEN URINE NEGATIVE (NEGATIVE); CANNABINOID URINE SCREEN NEGATIVE (NEGATIVE); METHADONE URINE SCREEN NEGATIVE (NEGATIVE); OPIATES URINE SCREEN NEGATIVE (NEGATIVE); PHENCYCLIDINE URINE SCREEN NEGATIVE (NEGATIVE)
[2016-11-23 17:06] VITALS: BP 110/80
== END 2016-11-23 17:11 | disposition home or self-care (01) ==
LOC: ER 13:24
DX: F10.129 Alcohol abuse with intoxication, unspecified (principal); Y90.8 Blood alcohol level of 240 mg/100 ml or more; K29.20 Alcoholic gastritis without bleeding; R56.9 Unspecified convulsions; F17.210 Nicotine dependence, cigarettes, uncomplicated; Z88.0 Allergy status to penicillin
CPT/HCPCS: 36415; 80053; 80305; 81001; 83690; 85025; 85027; 85610; 96360; 99284; G0482; J7030

== ENCOUNTER 2016-11-24 11:24 | Emergency (ER) | payer MEDICAID ==
[~2016-11-24] VITALS: Ht 167.6 cm; Wt 73.0 kg
[2016-11-24 13:04] VITALS: BP 114/83
[2016-11-24 13:04] LABS: BASOPHILS % 0.7 % (0.0-2.0); EOSINOPHILS % 1.1 % (0.0-5.0); HEMATOCRIT. 36.8 % (42.0-52.0); HEMOGLOBIN. 12.5 g/dL (14.0-18.0); LYMPHOCYTES % 54.1 % (20.0-50.0); MEAN CORPUSCULAR HEMOGLOBIN 32.4 pg (28.0-32.0); MEAN CORPUSCULAR VOLUME 95.1 fL (80.0-94.0); MEAN PLATELET VOLUME 7.2 fl (7.4-10.4); MONOCYTES % 7.3 % (2.0-8.0); NEUTROPHILS % 36.8 % (40.0-76.0); PLATELET 157 x1000/uL (130-400); RED BLOOD CELL COUNT 3.87 mill/uL (4.7-6.1); RED CELL DISTRIBUTION WIDTH 17.7 % (11.6-14.6)
[2016-11-24 13:19] LABS: CARBON DIOXIDE 28 mEq/L (21-32); CHLORIDE 111 mEq/L (98-107)
[2016-11-24 13:25] LABS: ETHANOL BLOOD 305 mg/dL
== END 2016-11-24 16:03 | disposition home or self-care (01) ==
LOC: ER 11:28
DX: F10.129 Alcohol abuse with intoxication, unspecified (principal); R51 Headache; G40.909 Epilepsy, unspecified, not intractable, without status epilepticus; Z88.0 Allergy status to penicillin; Y90.8 Blood alcohol level of 240 mg/100 ml or more
CPT/HCPCS: 36415; 70450; 80053; 85025; 99285; G0482; Z7610

== ENCOUNTER 2016-11-25 16:42 | Emergency (ER) | payer MEDICAID ==
[~2016-11-25] VITALS: Ht 167.6 cm; Wt 77.0 kg
[2016-11-25 17:04] VITALS: BP 110/76
[2016-11-25] MEDS ORDERED: SODIUM CHLORIDE 0.9% 1,000 ML IV ONE (17:15)
[2016-11-25 17:21] LABS: BASOPHILS % 1.2 % (0.0-2.0); EOSINOPHILS % 0.9 % (0.0-5.0); HEMATOCRIT. 38.5 % (42.0-52.0); LYMPHOCYTES % 53.5 % (20.0-50.0); MEAN CORPUSCULAR HEMOGLOBIN 32.2 pg (28.0-32.0); MEAN CORPUSCULAR VOLUME 95.2 fL (80.0-94.0); MEAN PLATELET VOLUME 7.3 fl (7.4-10.4); MONOCYTES % 6.4 % (2.0-8.0); PLATELET 153 x1000/uL (130-400); RED BLOOD CELL COUNT 4.04 mill/uL (4.7-6.1)
[2016-11-25 17:22] LABS: CHLORIDE 107 mEq/L (98-107)
[2016-11-25 17:30] LABS: *AMPHETAMINES SCREEN URINE NEGATIVE (NEGATIVE); *BARBITURATES SCREEN URINE NEGATIVE (NEGATIVE); *COCAINE SCREEN URINE NEGATIVE (NEGATIVE); CANNABINOID URINE SCREEN NEGATIVE (NEGATIVE); METHADONE URINE SCREEN NEGATIVE (NEGATIVE); OPIATES URINE SCREEN NEGATIVE (NEGATIVE); PHENCYCLIDINE URINE SCREEN NEGATIVE (NEGATIVE)
[2016-11-25 17:31] LABS: CARBON DIOXIDE 31 mEq/L (21-32)
[2016-11-25 17:34] LABS: ETHANOL BLOOD 319 mg/dL
[2016-11-25 17:54] LABS: *BENZODIAZEPINES SCREEN URINE PRESUMTIVE POSITIVE (NEGATIVE)
[2016-11-25] MEDS ORDERED: ACETAMINOPHEN 325MG TABLET PO ONE (18:30)
== END 2016-11-25 20:12 | disposition home or self-care (01) ==
LOC: ER 16:56
DX: S00.83XA Contusion of other part of head, initial encounter (principal); W01.0XXA Fall on same level from slipping, tripping and stumbling without subsequent striking against object, initial encounter; Y93.89 Activity, other specified; Y92.89 Other specified places as the place of occurrence of the external cause; R51 Headache; I10 Essential (primary) hypertension; G40.909 Epilepsy, unspecified, not intractable, without status epilepticus; F10.10 Alcohol abuse, uncomplicated; Y90.8 Blood alcohol level of 240 mg/100 ml or more
CPT/HCPCS: 36415; 70450; 80048; 80305; 85025; 96360; 99285; G0482; J7030; Z7610

== ENCOUNTER 2016-12-03 03:14 | Emergency (ER) | payer MEDICAID ==
[~2016-12-03] VITALS: Ht 172.7 cm; Wt 63.0 kg
[2016-12-03] MEDS ORDERED: SODIUM CHLORIDE 0.9% 1,000 ML IV ONE (03:51)
[2016-12-03] MEDS ORDERED: ONDANSETRON HCL 4MG/2ML VIAL IV ONE (04:00)
[2016-12-03 04:26] LABS: CHLORIDE 101 mEq/L (98-107)
[2016-12-03 04:29] LABS: BASOPHILS % 0.7 % (0.0-2.0); EOSINOPHILS % 0.8 % (0.0-5.0); HEMATOCRIT. 37.7 % (42.0-52.0); HEMOGLOBIN. 12.7 g/dL (14.0-18.0); LYMPHOCYTES % 49.6 % (20.0-50.0); MEAN CORPUSCULAR HEMOGLOBIN 32.2 pg (28.0-32.0); MEAN CORPUSCULAR VOLUME 95.8 fL (80.0-94.0); MEAN PLATELET VOLUME 8.3 fl (7.4-10.4); MONOCYTES % 11.2 % (2.0-8.0); NEUTROPHILS % 37.7 % (40.0-76.0); PLATELET 75 x1000/uL (130-400); RED BLOOD CELL COUNT 3.93 mill/uL (4.7-6.1)
[2016-12-03 04:34] LABS: CARBON DIOXIDE 24 mEq/L (21-32)
[2016-12-03] MEDS ORDERED: KCL 20MEQ/100ML PREMIX 100 ML IV ONE (05:15)
[2016-12-03 05:19] LABS: ETHANOL BLOOD 335 mg/dL
[2016-12-03 08:14] LABS: CLARITY URINE CLEAR (CLEAR); COLOR URINE YELLOW (YELLOW); GLUCOSE URINE NEGATIVE (NEGATIVE); KETONES URINE NEGATIVE (NEGATIVE); LEUKOCYTE ESTERASE URINE NEGATIVE (NEGATIVE); NITRITE URINE NEGATIVE (NEGATIVE); OCCULT BLOOD URINE TRACE (NEGATIVE); PROTEIN URINE NEGATIVE (NEGATIVE); SPECIFIC GRAVITY URINE 1.005 (1.005-1.030); UROBILINOGEN URINE 0.2 E.U./dL (0.2-1.0)
[2016-12-03 08:30] LABS: *AMPHETAMINES SCREEN URINE NEGATIVE (NEGATIVE); *BARBITURATES SCREEN URINE NEGATIVE (NEGATIVE); *BENZODIAZEPINES SCREEN URINE PRESUMTIVE POSITIVE (NEGATIVE); *COCAINE SCREEN URINE NEGATIVE (NEGATIVE); CANNABINOID URINE SCREEN NEGATIVE (NEGATIVE); METHADONE URINE SCREEN NEGATIVE (NEGATIVE); OPIATES URINE SCREEN NEGATIVE (NEGATIVE); PHENCYCLIDINE URINE SCREEN NEGATIVE (NEGATIVE)
[2016-12-03 09:20] VITALS: BP 133/76
== END 2016-12-03 10:58 | disposition home or self-care (01) ==
LOC: ER 03:16
DX: F10.129 Alcohol abuse with intoxication, unspecified (principal); E87.6 Hypokalemia; I10 Essential (primary) hypertension; F17.210 Nicotine dependence, cigarettes, uncomplicated; F12.10 Cannabis abuse, uncomplicated; Z88.0 Allergy status to penicillin; Y90.8 Blood alcohol level of 240 mg/100 ml or more
CPT/HCPCS: 36415; 80053; 80305; 81001; 83690; 85025; 96361; 96365; 96375; 99284; G0482; J2405; J3480; J7030; J7040; Z7610

== ENCOUNTER 2016-12-03 14:57 | Emergency (ER) | payer MEDICAID ==
[~2016-12-03] VITALS: Ht 167.6 cm; Wt 73.0 kg
[2016-12-03] MEDS ORDERED: ONDANSETRON HCL 4MG/2ML VIAL IV STA (15:31)
[2016-12-03] MEDS ORDERED: PANTOPRAZOLE SODIUM 40 MG/VIAL IV STA (15:31)
[2016-12-03] MEDS ORDERED: SODIUM CHLORIDE 0.9% 1,000 ML IV ONE (15:31)
[2016-12-03 16:02] LABS: INR 1.1; PROTHROMBIN TIME 11.8 sec
[2016-12-03 16:04] LABS: BASOPHILS % 0.8 % (0.0-2.0); EOSINOPHILS % 0.8 % (0.0-5.0); HEMATOCRIT. 37.1 % (42.0-52.0); HEMOGLOBIN. 12.5 g/dL (14.0-18.0); LYMPHOCYTES % 53.5 % (20.0-50.0); MEAN CORPUSCULAR HEMOGLOBIN 32.3 pg (28.0-32.0); MEAN CORPUSCULAR VOLUME 96.1 fL (80.0-94.0); MEAN PLATELET VOLUME 7.8 fl (7.4-10.4); MONOCYTES % 11.8 % (2.0-8.0); NEUTROPHILS % 33.1 % (40.0-76.0); PLATELET 87 x1000/uL (130-400); RED BLOOD CELL COUNT 3.86 mill/uL (4.7-6.1); RED CELL DISTRIBUTION WIDTH 17.4 % (11.6-14.6)
[2016-12-03 16:13] LABS: CARBON DIOXIDE 25 mEq/L (21-32); CHLORIDE 108 mEq/L (98-107)
[2016-12-03 16:34] LABS: ETHANOL BLOOD 350 mg/dL
[2016-12-03] MEDS ORDERED: SODIUM CHLORIDE 0.9% 1000ML BAG (SEPSIS BOLUS) IV ONE (16:45)
[2016-12-03] MEDS ORDERED: SODIUM CHLORIDE 0.9% IV SCH (16:45)
[2016-12-03 17:40] LABS: CLARITY URINE CLEAR (CLEAR); COLOR URINE YELLOW (YELLOW); GLUCOSE URINE NEGATIVE (NEGATIVE); KETONES URINE NEGATIVE (NEGATIVE); LEUKOCYTE ESTERASE URINE NEGATIVE (NEGATIVE); NITRITE URINE NEGATIVE (NEGATIVE); OCCULT BLOOD URINE TRACE (NEGATIVE); PH URINE 5.5 (4.5-8.0); PROTEIN URINE NEGATIVE (NEGATIVE); SPECIFIC GRAVITY URINE 1.006 (1.005-1.030); UROBILINOGEN URINE 0.2 E.U./dL (0.2-1.0)
[2016-12-04 03:30] VITALS: BP 115/77
== END 2016-12-04 06:45 | disposition home or self-care (01) ==
LOC: ER 14:57
DX: F10.129 Alcohol abuse with intoxication, unspecified (principal); D61.818 Other pancytopenia; E86.0 Dehydration; F17.200 Nicotine dependence, unspecified, uncomplicated; F12.10 Cannabis abuse, uncomplicated; J45.909 Unspecified asthma, uncomplicated; I10 Essential (primary) hypertension; G40.909 Epilepsy, unspecified, not intractable, without status epilepticus; Z88.0 Allergy status to penicillin
CPT/HCPCS: 36415; 71010; 80053; 81001; 83605; 83690; 85025; 85610; 86850; 86900; 86901; 87040; 87086; 93005; 96361; 96374; 96375; 99285; C9113; G0482; J2405; J7030; Z7610

== ENCOUNTER 2016-12-05 14:58 | Emergency (ER) | payer MEDICAID ==
[~2016-12-05] VITALS: Ht 165.1 cm; Wt 59.0 kg
[2016-12-05 16:23] LABS: BASOPHILS % 0.8 % (0.0-2.0); EOSINOPHILS % 0.6 % (0.0-5.0); HEMATOCRIT. 34.9 % (42.0-52.0); HEMOGLOBIN. 11.8 g/dL (14.0-18.0); LYMPHOCYTES % 52.3 % (20.0-50.0); MEAN CORPUSCULAR HEMOGLOBIN 32.6 pg (28.0-32.0); MEAN CORPUSCULAR VOLUME 96.4 fL (80.0-94.0); MEAN PLATELET VOLUME 7.4 fl (7.4-10.4); MONOCYTES % 11.4 % (2.0-8.0); NEUTROPHILS % 34.9 % (40.0-76.0); PLATELET 105 x1000/uL (130-400); RED BLOOD CELL COUNT 3.62 mill/uL (4.7-6.1); RED CELL DISTRIBUTION WIDTH 17.1 % (11.6-14.6)
[2016-12-05] MEDS ORDERED: IBUPROFEN 600MG TABLET PO ONE (19:30)
[2016-12-05 19:58] VITALS: BP 104/72
== END 2016-12-05 21:29 | disposition home or self-care (01) ==
LOC: ER 15:15
DX: G89.29 Other chronic pain (principal); M54.5 Low back pain; J45.909 Unspecified asthma, uncomplicated; I10 Essential (primary) hypertension; F10.229 Alcohol dependence with intoxication, unspecified; F12.10 Cannabis abuse, uncomplicated; Z88.0 Allergy status to penicillin; W01.0XXA Fall on same level from slipping, tripping and stumbling without subsequent striking against object, initial encounter; Y93.89 Activity, other specified; Y92.89 Other specified places as the place of occurrence of the external cause; Y99.8 Other external cause status
CPT/HCPCS: 36415; 72100; 85025; 99285; G0482

== ENCOUNTER 2016-12-06 13:36 | Emergency (ER) | payer MEDICAID ==
[~2016-12-06] VITALS: Ht 167.6 cm; Wt 70.0 kg
[2016-12-06] MEDS ORDERED: FAMOTIDINE 20MG/2ML VIAL IV STA (14:05)
[2016-12-06] MEDS ORDERED: ONDANSETRON HCL 4MG/2ML VIAL IV STA (14:05)
[2016-12-06] MEDS ORDERED: SODIUM CHLORIDE 0.9% 1,000 ML IV ONE (14:05)
[2016-12-06] MEDS ORDERED: LEVETIRACETAM 500MG TABLET PO ONE (14:15)
[2016-12-06] MEDS ORDERED: FOLIC ACID 1 MG, THIAMINE HCL 100 MG, MVI, ADULT NO.1 10 ML in DEXTROSE 5% WATER 1,000 ML IV ONE ×4 (14:15)
[2016-12-06 14:31] LABS: BASOPHILS % 0.9 % (0.0-2.0); EOSINOPHILS % 0.7 % (0.0-5.0); HEMATOCRIT. 32.7 % (42.0-52.0); HEMOGLOBIN. 11.1 g/dL (14.0-18.0); LYMPHOCYTES % 59.6 % (20.0-50.0); MEAN CORPUSCULAR HEMOGLOBIN 32.6 pg (28.0-32.0); MEAN CORPUSCULAR VOLUME 96.1 fL (80.0-94.0); MEAN PLATELET VOLUME 7.1 fl (7.4-10.4); MONOCYTES % 10.6 % (2.0-8.0); NEUTROPHILS % 28.2 % (40.0-76.0); PLATELET 115 x1000/uL (130-400); RED CELL DISTRIBUTION WIDTH 18.1 % (11.6-14.6)
[2016-12-06 14:36] LABS: INR 1.1; PARTIAL THROMBOPLASTIN TIME 28.1 sec (24.0-34.0)
[2016-12-06 14:42] LABS: CARBON DIOXIDE 27 mEq/L (21-32); CHLORIDE 109 mEq/L (98-107); TROPONIN I < 0.02 ng/mL (0.00-0.04)
[2016-12-06 14:43] LABS: ETHANOL BLOOD 349 mg/dL
[2016-12-06] MEDS ORDERED: FOLIC ACID 1 MG, THIAMINE HCL 100 MG, MVI, ADULT NO.1 10 ML in DEXTROSE 5% WATER 1,000 ML IV SCH ×4 (18:30)
[2016-12-06 19:45] VITALS: BP 110/68
== END 2016-12-06 21:02 | disposition home or self-care (01) ==
LOC: ER 13:50
DX: T51.0X1A Toxic effect of ethanol, accidental (unintentional), initial encounter (principal); G40.909 Epilepsy, unspecified, not intractable, without status epilepticus; R10.13 Epigastric pain; F10.229 Alcohol dependence with intoxication, unspecified; F17.200 Nicotine dependence, unspecified, uncomplicated; F12.10 Cannabis abuse, uncomplicated; J45.909 Unspecified asthma, uncomplicated; I10 Essential (primary) hypertension; Z88.0 Allergy status to penicillin; Y92.89 Other specified places as the place of occurrence of the external cause
CPT/HCPCS: 36415; 74022; 80053; 80307; 80329; 83690; 84484; 85025; 85610; 85730; 93005; 96361; 96374; 96375; 99285; G0482; J2405; J3411; J3490; J7030; J7070; Z7610

== ENCOUNTER 2016-12-07 15:19 | Emergency (ER) | payer MEDICAID ==
[~2016-12-07] VITALS: Ht 172.7 cm; Wt 70.0 kg
[2016-12-07 15:23] VITALS: BP 105/56
== END 2016-12-07 18:32 | disposition left against medical advice (07) ==
LOC: ER 15:33
DX: Z53.21 Procedure and treatment not carried out due to patient leaving prior to being seen by health care provider (principal)

== ENCOUNTER 2016-12-08 03:24 | Emergency (ER) | payer MEDICAID ==
[~2016-12-08] VITALS: Ht 175.3 cm; Wt 64.0 kg
[2016-12-08] MEDS ORDERED: SODIUM CHLORIDE 0.9% 1,000 ML IV ONE (09:14)
[2016-12-08] MEDS ORDERED: MAGNESIUM/ALUMINUM HYDROXIDE/SIMETHICONE 30ML UDC PO STA (09:14)
[2016-12-08] MEDS ORDERED: ONDANSETRON HCL 4MG/2ML VIAL IV ONE (09:15)
[2016-12-08] MEDS ORDERED: FAMOTIDINE 20MG/2ML VIAL IV ONE (09:15)
[2016-12-08 09:31] LABS: BASOPHILS % 0.9 % (0.0-2.0); HEMATOCRIT. 38.3 % (42.0-52.0); HEMOGLOBIN. 12.8 g/dL (14.0-18.0); LYMPHOCYTES % 60.4 % (20.0-50.0); MEAN CORPUSCULAR HEMOGLOBIN 32.6 pg (28.0-32.0); MEAN CORPUSCULAR VOLUME 97.4 fL (80.0-94.0); NEUTROPHILS % 23.7 % (40.0-76.0); PLATELET 120 x1000/uL (130-400); RED BLOOD CELL COUNT 3.94 mill/uL (4.7-6.1); RED CELL DISTRIBUTION WIDTH 17.9 % (11.6-14.6)
[2016-12-08 09:39] LABS: INR 1.2; PROTHROMBIN TIME 12.3 sec
[2016-12-08 09:45] LABS: CARBON DIOXIDE 28 mEq/L (21-32); CHLORIDE 110 mEq/L (98-107)
[2016-12-08 12:10] VITALS: BP 124/79
== END 2016-12-08 13:16 | disposition home or self-care (01) ==
LOC: ER 03:24
DX: R10.13 Epigastric pain (principal); R11.2 Nausea with vomiting, unspecified; G40.909 Epilepsy, unspecified, not intractable, without status epilepticus; Z88.0 Allergy status to penicillin
CPT/HCPCS: 36415; 80053; 83690; 85025; 85610; 96361; 96374; 96375; 99284; J2405; J3490; J7030

== ENCOUNTER 2016-12-09 01:15 | Emergency (ER) | payer MEDICAID ==
[~2016-12-09] VITALS: Ht 165.1 cm; Wt 63.6 kg
[2016-12-09 05:39] LABS: BASOPHILS % 0.7 % (0.0-2.0); EOSINOPHILS % 1.2 % (0.0-5.0); HEMATOCRIT. 36.3 % (42.0-52.0); HEMOGLOBIN. 12.8 g/dL (14.0-18.0); LYMPHOCYTES % 62.3 % (20.0-50.0); MEAN CORPUSCULAR HEMOGLOBIN 33.9 pg (28.0-32.0); MEAN CORPUSCULAR VOLUME 96.3 fL (80.0-94.0); MEAN PLATELET VOLUME 6.7 fl (7.4-10.4); MONOCYTES % 12.7 % (2.0-8.0); NEUTROPHILS % 23.1 % (40.0-76.0); PLATELET 125 x1000/uL (130-400); RED BLOOD CELL COUNT 3.77 mill/uL (4.7-6.1); RED CELL DISTRIBUTION WIDTH 17.9 % (11.6-14.6)
[2016-12-09 06:01] LABS: CARBON DIOXIDE 28 mEq/L (21-32); CHLORIDE 110 mEq/L (98-107)
[2016-12-09 06:27] LABS: ETHANOL BLOOD 323 mg/dL
[2016-12-09] MEDS ORDERED: ONDANSETRON HCL 4MG/2ML VIAL IV ONE (07:15)
[2016-12-09] MEDS ORDERED: FOLIC ACID 1 MG, THIAMINE HCL 100 MG, MVI, ADULT NO.1 10 ML in DEXTROSE 5% WATER 1,000 ML IV ONE ×4 (07:15)
[2016-12-09 09:53] LABS: CLARITY URINE CLEAR (CLEAR); COLOR URINE YELLOW (YELLOW); GLUCOSE URINE 1+ (NEGATIVE); KETONES URINE NEGATIVE (NEGATIVE); LEUKOCYTE ESTERASE URINE NEGATIVE (NEGATIVE); NITRITE URINE NEGATIVE (NEGATIVE); OCCULT BLOOD URINE TRACE (NEGATIVE); PROTEIN URINE NEGATIVE (NEGATIVE); SPECIFIC GRAVITY URINE 1.014 (1.005-1.030); UROBILINOGEN URINE 0.2 E.U./dL (0.2-1.0)
[2016-12-09 10:15] VITALS: BP 125/87
[2016-12-09 10:43] LABS: *AMPHETAMINES SCREEN URINE NEGATIVE (NEGATIVE); *BARBITURATES SCREEN URINE NEGATIVE (NEGATIVE); *BENZODIAZEPINES SCREEN URINE PRESUMTIVE POSITIVE (NEGATIVE); *COCAINE SCREEN URINE NEGATIVE (NEGATIVE); CANNABINOID URINE SCREEN NEGATIVE (NEGATIVE); METHADONE URINE SCREEN NEGATIVE (NEGATIVE); OPIATES URINE SCREEN NEGATIVE (NEGATIVE); PHENCYCLIDINE URINE SCREEN NEGATIVE (NEGATIVE)
== END 2016-12-09 10:53 | disposition home or self-care (01) ==
LOC: ER 01:15
DX: F10.129 Alcohol abuse with intoxication, unspecified (principal); Y90.8 Blood alcohol level of 240 mg/100 ml or more; K29.20 Alcoholic gastritis without bleeding; F32.9 Major depressive disorder, single episode, unspecified; F17.210 Nicotine dependence, cigarettes, uncomplicated; F12.10 Cannabis abuse, uncomplicated; J45.909 Unspecified asthma, uncomplicated; I10 Essential (primary) hypertension; R56.9 Unspecified convulsions; Z88.0 Allergy status to penicillin
CPT/HCPCS: 36415; 80053; 80305; 80307; 80329; 81001; 85025; 96365; 96366; 96375; 99285; G0482; J2405; J3411; J3490; J7070; Z7610

== ENCOUNTER 2016-12-24 18:03 | Emergency (ER) | payer MEDICAID ==
[~2016-12-24] VITALS: Ht 170.2 cm; Wt 70.0 kg
[2016-12-24 18:09] VITALS: BP 102/68
== END 2016-12-25 00:19 | disposition left against medical advice (07) ==
LOC: ER 18:14
DX: R10.9 Unspecified abdominal pain (principal); Z53.21 Procedure and treatment not carried out due to patient leaving prior to being seen by health care provider

== ENCOUNTER 2016-12-27 15:48 | Emergency (ER) | payer MEDICAID ==
[~2016-12-27] VITALS: Ht 167.6 cm; Wt 73.0 kg
[2016-12-27 15:49] VITALS: BP 105/74
[2016-12-27] MEDS ORDERED: OLANZAPINE 10 MG/VIAL IM STA (17:07)
== END 2016-12-27 17:30 | disposition home or self-care (01) ==
LOC: ER 16:28
DX: R44.0 Auditory hallucinations (principal); I10 Essential (primary) hypertension; Z88.0 Allergy status to penicillin
CPT/HCPCS: 99284

== ENCOUNTER 2017-01-10 20:15 | Emergency (ER) | payer MEDICAID ==
[~2017-01-10] VITALS: Ht 170.2 cm; Wt 72.0 kg
[2017-01-10 20:20] VITALS: BP 122/86
== END 2017-01-10 21:16 | disposition left against medical advice (07) ==
LOC: ER 20:15
DX: F10.129 Alcohol abuse with intoxication, unspecified (principal); Z53.21 Procedure and treatment not carried out due to patient leaving prior to being seen by health care provider

== ENCOUNTER 2017-01-26 10:55 | Emergency (ER) | payer MEDICAID ==
[~2017-01-26] VITALS: Ht 172.7 cm; Wt 70.0 kg
[2017-01-26] MEDS ORDERED: ONDANSETRON HCL 4MG/2ML VIAL IV STA (11:14)
[2017-01-26] MEDS ORDERED: FAMOTIDINE 20MG/2ML VIAL IV STA (11:14)
[2017-01-26] MEDS ORDERED: SODIUM CHLORIDE 0.9% 1,000 ML IV ONE (11:14)
[2017-01-26] MEDS ORDERED: MAGNESIUM/ALUMINUM HYDROXIDE/SIMETHICONE 30ML UDC PO STA (11:14)
[2017-01-26 11:47] LABS: BASOPHILS % 0.9 % (0.0-2.0); EOSINOPHILS % 2.3 % (0.0-5.0); HEMATOCRIT. 39.6 % (42.0-52.0); HEMOGLOBIN. 13.4 g/dL (14.0-18.0); LYMPHOCYTES % 50.5 % (20.0-50.0); MEAN CORPUSCULAR HEMOGLOBIN 32.9 pg (28.0-32.0); MEAN CORPUSCULAR VOLUME 96.9 fL (80.0-94.0); MEAN PLATELET VOLUME 7.1 fl (7.4-10.4); MONOCYTES % 7.5 % (2.0-8.0); NEUTROPHILS % 38.8 % (40.0-76.0); PLATELET 190 x1000/uL (130-400); RED BLOOD CELL COUNT 4.09 mill/uL (4.7-6.1); RED CELL DISTRIBUTION WIDTH 15.1 % (11.6-14.6)
[2017-01-26 11:55] LABS: INR 1.2; PROTHROMBIN TIME 12.2 sec (9.4-11.6)
[2017-01-26 11:59] LABS: CARBON DIOXIDE 26 mEq/L (21-32); CHLORIDE 110 mEq/L (98-107)
[2017-01-26 12:09] LABS: ETHANOL BLOOD 409 mg/dL
[2017-01-26 12:30] VITALS: BP 111/70
== END 2017-01-26 12:58 | disposition home or self-care (01) ==
LOC: ER 11:02
DX: F10.129 Alcohol abuse with intoxication, unspecified (principal); R10.13 Epigastric pain; I10 Essential (primary) hypertension; G40.909 Epilepsy, unspecified, not intractable, without status epilepticus; D72.819 Decreased white blood cell count, unspecified; E78.00 Pure hypercholesterolemia, unspecified; D64.9 Anemia, unspecified; E87.6 Hypokalemia; Y90.8 Blood alcohol level of 240 mg/100 ml or more; Z88.0 Allergy status to penicillin
CPT/HCPCS: 36415; 80053; 83690; 85025; 85610; 96361; 96374; 96375; 99284; G0482; J2405; J3490; J7030

== ENCOUNTER 2017-02-10 20:58 | Emergency (ER) | payer MEDICAID ==
[~2017-02-10] VITALS: Ht 170.2 cm; Wt 65.0 kg
[2017-02-10 21:00] VITALS: BP 138/90
== END 2017-02-10 23:00 | disposition left against medical advice (07) ==
LOC: ER 22:08
DX: Z53.21 Procedure and treatment not carried out due to patient leaving prior to being seen by health care provider (principal); F10.20 Alcohol dependence, uncomplicated; J45.909 Unspecified asthma, uncomplicated; I10 Essential (primary) hypertension; R56.9 Unspecified convulsions; F17.210 Nicotine dependence, cigarettes, uncomplicated; Z88.0 Allergy status to penicillin

== ENCOUNTER 2017-03-11 15:13 | Emergency (ER) | payer MEDICAID ==
[~2017-03-11] VITALS: Ht 177.8 cm; Wt 70.0 kg
[2017-03-11] MEDS ORDERED: SODIUM CHLORIDE 0.9% 1,000 ML IV ONE (17:27)
[2017-03-11] MEDS ORDERED: ONDANSETRON HCL 4MG/2ML VIAL IV STA (17:27)
[2017-03-11] MEDS ORDERED: MORPHINE SULFATE 4 MG/ML CPJ (NOT FOR IM USE) IV STA (17:27)
[2017-03-11] MEDS ORDERED: MAGNESIUM/ALUMINUM HYDROXIDE/SIMETHICONE 30ML UDC PO ONE (17:30)
[2017-03-11] MEDS ORDERED: FAMOTIDINE 20MG/2ML VIAL IV ONE (17:30)
[2017-03-11 17:40] VITALS: BP 95/63
[2017-03-11 18:09] LABS: *AMPHETAMINES SCREEN URINE NEGATIVE (NEGATIVE); *BARBITURATES SCREEN URINE NEGATIVE (NEGATIVE); *BENZODIAZEPINES SCREEN URINE NEGATIVE (NEGATIVE); *COCAINE SCREEN URINE NEGATIVE (NEGATIVE); CANNABINOID URINE SCREEN PRESUMTIVE POSITIVE (NEGATIVE); METHADONE URINE SCREEN NEGATIVE (NEGATIVE); OPIATES URINE SCREEN NEGATIVE (NEGATIVE); PHENCYCLIDINE URINE SCREEN NEGATIVE (NEGATIVE)
== END 2017-03-11 18:11 | disposition left against medical advice (07) ==
LOC: ER 15:25
DX: R07.9 Chest pain, unspecified (principal); I10 Essential (primary) hypertension; E11.9 Type 2 diabetes mellitus without complications; J45.909 Unspecified asthma, uncomplicated; Z88.0 Allergy status to penicillin
CPT/HCPCS: 71010; 80305; 93005; 99285; J7030

== ENCOUNTER 2017-04-06 12:19 | Emergency (ER) | payer MEDICAID ==
[~2017-04-06] VITALS: Ht 165.1 cm; Wt 60.0 kg
[2017-04-06] MEDS ORDERED: FAMOTIDINE 20MG/2ML VIAL IV ONE (13:00)
[2017-04-06] MEDS ORDERED: SODIUM CHLORIDE 0.9% 1,000 ML IV ONE (13:00)
[2017-04-06] MEDS ORDERED: ONDANSETRON HCL 4MG/2ML VIAL IV ONE (13:00)
[2017-04-06 13:22] LABS: BASOPHILS % 1.3 % (0.0-2.0); EOSINOPHILS % 1.1 % (0.0-5.0); HEMATOCRIT. 40.8 % (42.0-52.0); HEMOGLOBIN. 13.9 g/dL (14.0-18.0); LYMPHOCYTES % 55.1 % (20.0-50.0); MEAN CORPUSCULAR HEMOGLOBIN 33.5 pg (28.0-32.0); MEAN CORPUSCULAR VOLUME 98.2 fL (80.0-94.0); MONOCYTES % 9.9 % (2.0-8.0); NEUTROPHILS % 32.6 % (40.0-76.0); PLATELET 256 x1000/uL (130-400); RED BLOOD CELL COUNT 4.15 mill/uL (4.7-6.1); RED CELL DISTRIBUTION WIDTH 15.1 % (11.6-14.6)
[2017-04-06 13:28] LABS: INR 1.1; PARTIAL THROMBOPLASTIN TIME 27.5 sec (23.4-31.0); PROTHROMBIN TIME 11.5 sec (9.4-11.6)
[2017-04-06 13:35] LABS: CARBON DIOXIDE 28 mEq/L (21-32); CHLORIDE 108 mEq/L (98-107)
[2017-04-06 13:40] LABS: ETHANOL BLOOD 358 mg/dL
[2017-04-06 16:30] VITALS: BP 107/68
[2017-04-06 17:01] LABS: CLARITY URINE CLEAR (CLEAR); COLOR URINE YELLOW (YELLOW); GLUCOSE URINE NEGATIVE (NEGATIVE); KETONES URINE TRACE (NEGATIVE); LEUKOCYTE ESTERASE URINE NEGATIVE (NEGATIVE); NITRITE URINE NEGATIVE (NEGATIVE); OCCULT BLOOD URINE NEGATIVE (NEGATIVE); PROTEIN URINE NEGATIVE (NEGATIVE); SPECIFIC GRAVITY URINE 1.022 (1.005-1.030)
[2017-04-06 17:14] LABS: *AMPHETAMINES SCREEN URINE NEGATIVE (NEGATIVE); *BARBITURATES SCREEN URINE NEGATIVE (NEGATIVE); *BENZODIAZEPINES SCREEN URINE NEGATIVE (NEGATIVE); *COCAINE SCREEN URINE NEGATIVE (NEGATIVE); CANNABINOID URINE SCREEN PRESUMTIVE POSITIVE (NEGATIVE); METHADONE URINE SCREEN NEGATIVE (NEGATIVE); OPIATES URINE SCREEN NEGATIVE (NEGATIVE); PHENCYCLIDINE URINE SCREEN NEGATIVE (NEGATIVE)
[2017-04-06] MEDS ORDERED: CEFTRIAXONE SODIUM 1 G/VIAL IM ONE (18:00)
[2017-04-06] MEDS ORDERED: LIDOCAINE HCL 1% 20ML VIAL (Pyxis) INJ MC ONE (18:00)
== END 2017-04-06 17:05 | disposition left against medical advice (07) ==
LOC: ER 12:28
DX: S06.9X9A Unspecified intracranial injury with loss of consciousness of unspecified duration, initial encounter (principal); F10.129 Alcohol abuse with intoxication, unspecified; Y90.8 Blood alcohol level of 240 mg/100 ml or more; I10 Essential (primary) hypertension; E11.9 Type 2 diabetes mellitus without complications; G40.909 Epilepsy, unspecified, not intractable, without status epilepticus; Z88.0 Allergy status to penicillin; W01.0XXA Fall on same level from slipping, tripping and stumbling without subsequent striking against object, initial encounter; Y93.89 Activity, other specified; Y92.488 Other paved roadways as the place of occurrence of the external cause
CPT/HCPCS: 36415; 70450; 80048; 80305; 81003; 85025; 85610; 85730; 96360; 99285; C1893; G0482; J7030; Z7610

== ENCOUNTER 2017-04-07 17:36 | Emergency (ER) | payer MEDICAID ==
[~2017-04-07] VITALS: Ht 170.2 cm; Wt 70.0 kg
[2017-04-07 17:48] VITALS: BP 120/89
== END 2017-04-07 18:02 | disposition left against medical advice (07) ==
LOC: ER 17:36
DX: G40.909 Epilepsy, unspecified, not intractable, without status epilepticus (principal); E11.9 Type 2 diabetes mellitus without complications; I10 Essential (primary) hypertension; J45.909 Unspecified asthma, uncomplicated; F10.20 Alcohol dependence, uncomplicated
CPT/HCPCS: 99283

== ENCOUNTER 2017-04-22 14:49 | Emergency (ER) | payer MEDICAID ==
[~2017-04-22] VITALS: Ht 170.2 cm; Wt 75.0 kg
[2017-04-22] MEDS ORDERED: LORAZEPAM 2MG/ML CPJ IV ONE (15:30)
[2017-04-22] MEDS ORDERED: ONDANSETRON HCL 4MG/2ML VIAL IV ONE (15:30)
[2017-04-22] MEDS ORDERED: LEVETIRACETAM 500MG PREMIX 100 ML IV ONE (15:30)
[2017-04-22 15:53] LABS: BASOPHILS % 0.9 % (0.0-2.0); EOSINOPHILS % 1.8 % (0.0-5.0); HEMATOCRIT. 41.1 % (42.0-52.0); HEMOGLOBIN. 13.6 g/dL (14.0-18.0); LYMPHOCYTES % 45.9 % (20.0-50.0); MEAN CORPUSCULAR HEMOGLOBIN 32.5 pg (28.0-32.0); MEAN CORPUSCULAR VOLUME 97.8 fL (80.0-94.0); MEAN PLATELET VOLUME 7.6 fl (7.4-10.4); MONOCYTES % 8.8 % (2.0-8.0); NEUTROPHILS % 42.6 % (40.0-76.0); PLATELET 166 x1000/uL (130-400); RED CELL DISTRIBUTION WIDTH 14.9 % (11.6-14.6)
[2017-04-22 15:55] LABS: CHLORIDE 110 mEq/L (98-107)
[2017-04-22 16:03] LABS: CARBON DIOXIDE 27 mEq/L (21-32)
[2017-04-22 16:15] LABS: ETHANOL BLOOD 360 mg/dL
[2017-04-22 19:05] VITALS: BP 108/58
== END 2017-04-22 19:14 | disposition home or self-care (01) ==
LOC: ER 14:52
DX: F10.229 Alcohol dependence with intoxication, unspecified (principal); E11.9 Type 2 diabetes mellitus without complications; I10 Essential (primary) hypertension; J45.909 Unspecified asthma, uncomplicated; R56.9 Unspecified convulsions; F17.200 Nicotine dependence, unspecified, uncomplicated; Z88.0 Allergy status to penicillin; Y90.8 Blood alcohol level of 240 mg/100 ml or more
CPT/HCPCS: 36415; 80053; 85025; 96365; 96375; 99284; G0482; J1953; J2405

== ENCOUNTER 2017-04-26 22:23 | Emergency (ER) | payer MEDICAID ==
[~2017-04-26] VITALS: Ht 162.6 cm; Wt 61.0 kg
[2017-04-26] MEDS ORDERED: FAMOTIDINE 20MG/2ML VIAL IV STA (23:48)
[2017-04-26] MEDS ORDERED: MAGNESIUM/ALUMINUM HYDROXIDE/SIMETHICONE 30ML UDC PO STA (23:48)
[2017-04-26] MEDS ORDERED: ONDANSETRON HCL 4MG/2ML VIAL IV STA (23:48)
[2017-04-26] MEDS ORDERED: SODIUM CHLORIDE 0.9% 500 ML IV ONE (23:59)
[2017-04-27 00:04] LABS: BASOPHILS % 0.8 % (0.0-2.0); EOSINOPHILS % 0.3 % (0.0-5.0); HEMATOCRIT. 40.5 % (42.0-52.0); HEMOGLOBIN. 13.4 g/dL (14.0-18.0); MEAN CORPUSCULAR HEMOGLOBIN 32.2 pg (28.0-32.0); MEAN PLATELET VOLUME 6.9 fl (7.4-10.4); MONOCYTES % 9.3 % (2.0-8.0); NEUTROPHILS % 45.6 % (40.0-76.0); PLATELET 172 x1000/uL (130-400); RED BLOOD CELL COUNT 4.17 mill/uL (4.7-6.1); RED CELL DISTRIBUTION WIDTH 15.2 % (11.6-14.6)
[2017-04-27 00:08] LABS: CHLORIDE 109 mEq/L (98-107)
[2017-04-27 00:18] LABS: CARBON DIOXIDE 24 mEq/L (21-32)
[2017-04-27 00:23] LABS: CLARITY URINE CLEAR (CLEAR); COLOR URINE YELLOW (YELLOW); GLUCOSE URINE NEGATIVE (NEGATIVE); KETONES URINE NEGATIVE (NEGATIVE); LEUKOCYTE ESTERASE URINE NEGATIVE (NEGATIVE); NITRITE URINE NEGATIVE (NEGATIVE); OCCULT BLOOD URINE 1+ (NEGATIVE); PROTEIN URINE TRACE (NEGATIVE); SPECIFIC GRAVITY URINE 1.011 (1.005-1.030); UROBILINOGEN URINE 0.2 E.U./dL (0.2-1.0)
[2017-04-27 00:49] LABS: ETHANOL BLOOD 352 mg/dL
[2017-04-27 06:47] VITALS: BP 122/76
== END 2017-04-27 06:50 | disposition home or self-care (01) ==
LOC: ER 22:35
DX: F10.129 Alcohol abuse with intoxication, unspecified (principal); K22.6 Gastro-esophageal laceration-hemorrhage syndrome; N39.0 Urinary tract infection, site not specified; D72.819 Decreased white blood cell count, unspecified; D64.9 Anemia, unspecified; G40.909 Epilepsy, unspecified, not intractable, without status epilepticus; I10 Essential (primary) hypertension; F17.210 Nicotine dependence, cigarettes, uncomplicated; Y90.8 Blood alcohol level of 240 mg/100 ml or more; Z88.0 Allergy status to penicillin
CPT/HCPCS: 36415; 80053; 81001; 83690; 85025; 96361; 96374; 96375; 99285; G0482; J2405; J3490; J7040; Z7610; 81003; J7030

== ENCOUNTER 2017-04-28 15:25 | Emergency (ER) | payer MEDICAID ==
[~2017-04-28] VITALS: Ht 162.6 cm; Wt 64.0 kg
[2017-04-28 15:29] VITALS: BP 132/93
[2017-04-28] MEDS ORDERED: ONDANSETRON HCL 4MG/2ML VIAL IV STA (15:38)
[2017-04-28] MEDS ORDERED: SODIUM CHLORIDE 0.9% 1,000 ML IV ONE (15:38)
[2017-04-28 16:23] LABS: INR 1.1; PROTHROMBIN TIME 11.1 sec (9.4-11.6)
[2017-04-28 16:25] LABS: BASOPHILS % 0.7 % (0.0-2.0); EOSINOPHILS % 0.5 % (0.0-5.0); HEMATOCRIT. 45.8 % (42.0-52.0); HEMOGLOBIN. 15.4 g/dL (14.0-18.0); MEAN CORPUSCULAR HEMOGLOBIN 32.9 pg (28.0-32.0); MEAN CORPUSCULAR VOLUME 98.1 fL (80.0-94.0); MEAN PLATELET VOLUME 7.5 fl (7.4-10.4); MONOCYTES % 8.7 % (2.0-8.0); NEUTROPHILS % 34.1 % (40.0-76.0); PLATELET 147 x1000/uL (130-400); RED BLOOD CELL COUNT 4.67 mill/uL (4.7-6.1); RED CELL DISTRIBUTION WIDTH 15.2 % (11.6-14.6)
[2017-04-28 16:27] LABS: CARBON DIOXIDE 27 mEq/L (21-32); CHLORIDE 106 mEq/L (98-107)
[2017-04-28 16:38] LABS: ETHANOL BLOOD 373 mg/dL
[2017-04-28] MEDS ORDERED: LEVETIRACETAM 500MG PREMIX 100 ML IV ONE (17:30)
[2017-04-28] MEDS ORDERED: PANTOPRAZOLE SODIUM 40 MG/VIAL IV ONE (17:30)
[2017-04-28 17:49] LABS: EOSINOPHILS % 0.8 % (0.0-5.0); HEMATOCRIT. 41.6 % (42.0-52.0); HEMOGLOBIN. 14.1 g/dL (14.0-18.0); LYMPHOCYTES % 59.6 % (20.0-50.0); MEAN CORPUSCULAR HEMOGLOBIN 33.2 pg (28.0-32.0); MEAN CORPUSCULAR VOLUME 97.6 fL (80.0-94.0); MEAN PLATELET VOLUME 7.3 fl (7.4-10.4); MONOCYTES % 6.6 % (2.0-8.0); PLATELET 153 x1000/uL (130-400); RED BLOOD CELL COUNT 4.26 mill/uL (4.7-6.1)
== END 2017-04-28 19:15 | disposition left against medical advice (07) ==
LOC: ER 15:37
DX: F10.229 Alcohol dependence with intoxication, unspecified (principal); Y90.8 Blood alcohol level of 240 mg/100 ml or more; G40.909 Epilepsy, unspecified, not intractable, without status epilepticus; R74.0 Nonspecific elevation of levels of transaminase and lactic acid dehydrogenase [LDH]; I10 Essential (primary) hypertension; F17.210 Nicotine dependence, cigarettes, uncomplicated; Z88.0 Allergy status to penicillin
CPT/HCPCS: 36415; 71010; 74176; 80053; 85025; 85610; 93005; 96361; 96365; 96375; 99285; C9113; G0482; J1953; J2405; J7030; Z7610

== ENCOUNTER 2017-05-01 00:04 | Emergency (ER) | payer MEDICAID ==
[~2017-05-01] VITALS: Ht 167.6 cm; Wt 68.0 kg
[2017-05-01] MEDS ORDERED: SODIUM CHLORIDE 0.9% 1,000 ML IV ONE (01:35)
[2017-05-01] MEDS ORDERED: ONDANSETRON HCL 4MG/2ML VIAL IV STA (01:35)
[2017-05-01 02:03] LABS: BASOPHILS % 0.7 % (0.0-2.0); EOSINOPHILS % 0.4 % (0.0-5.0); HEMATOCRIT. 44.4 % (42.0-52.0); HEMOGLOBIN. 15.3 g/dL (14.0-18.0); LYMPHOCYTES % 37.8 % (20.0-50.0); MEAN CORPUSCULAR HEMOGLOBIN 33.3 pg (28.0-32.0); MEAN CORPUSCULAR VOLUME 96.6 fL (80.0-94.0); MEAN PLATELET VOLUME 7.9 fl (7.4-10.4); MONOCYTES % 8.4 % (2.0-8.0); NEUTROPHILS % 52.7 % (40.0-76.0); PLATELET 112 x1000/uL (130-400); RED CELL DISTRIBUTION WIDTH 14.2 % (11.6-14.6)
[2017-05-01 02:08] LABS: CHLORIDE 103 mEq/L (98-107); INR 1.1; PROTHROMBIN TIME 11.2 sec (9.4-11.6)
[2017-05-01 02:18] LABS: CARBON DIOXIDE 29 mEq/L (21-32)
[2017-05-01 03:08] LABS: CLARITY URINE CLEAR (CLEAR); COLOR URINE YELLOW (YELLOW); KETONES URINE NEGATIVE (NEGATIVE); LEUKOCYTE ESTERASE URINE NEGATIVE (NEGATIVE); NITRITE URINE NEGATIVE (NEGATIVE); OCCULT BLOOD URINE 1+ (NEGATIVE); PROTEIN URINE 1+ (NEGATIVE); SPECIFIC GRAVITY URINE 1.007 (1.005-1.030); UROBILINOGEN URINE 0.2 E.U./dL (0.2-1.0)
[2017-05-01] MEDS ORDERED: IOHEXOL-300 100 ML BOTTLE ONE (03:54)
[2017-05-01] MEDS ORDERED: LEVOFLOXACIN 750MG PREMIX 150 ML IV ONE (04:00)
[2017-05-01] MEDS ORDERED: METRONIDAZOLE 500 MG PREMIX 100 ML IV ONE (04:00)
[2017-05-01 04:35] VITALS: BP 135/86
[2017-05-01] MEDS ORDERED: SODIUM CHLORIDE 0.9% 1,000 ML IV SCH (04:55)
== END 2017-05-01 08:39 | disposition left against medical advice (07) ==
LOC: ER 00:09 → CANBEDREQ 16:55
DX: K92.2 Gastrointestinal hemorrhage, unspecified (principal); F17.200 Nicotine dependence, unspecified, uncomplicated; I10 Essential (primary) hypertension; R11.2 Nausea with vomiting, unspecified; F12.10 Cannabis abuse, uncomplicated; R56.9 Unspecified convulsions; Z88.0 Allergy status to penicillin
CPT/HCPCS: 36415; 74177; 80053; 81001; 83605; 83690; 85025; 85610; 87040; 96361; 96365; 96366; 96367; 96375; 99285; J1956; J2405; J3490; Q9967; Z7610; J7030

== ENCOUNTER 2017-05-27 23:23 | Emergency (ER) | payer MEDICAID ==
[~2017-05-27] VITALS: Ht 172.7 cm; Wt 63.0 kg
[2017-05-27 23:24] VITALS: BP 105/72
== END 2017-05-28 | disposition left against medical advice (07) ==
LOC: ER 23:23
DX: R10.9 Unspecified abdominal pain (principal); Z53.21 Procedure and treatment not carried out due to patient leaving prior to being seen by health care provider

== ENCOUNTER 2017-05-28 20:33 | Emergency (ER) | payer MEDICAID ==
[~2017-05-28] VITALS: Ht 165.1 cm; Wt 66.0 kg
[2017-05-28 20:35] VITALS: BP 112/86
== END 2017-05-28 22:00 | disposition left against medical advice (07) ==
LOC: ER 20:52
DX: J06.9 Acute upper respiratory infection, unspecified (principal); R56.9 Unspecified convulsions; F10.20 Alcohol dependence, uncomplicated; F17.200 Nicotine dependence, unspecified, uncomplicated; Z88.0 Allergy status to penicillin
CPT/HCPCS: 99283

== ENCOUNTER 2017-06-02 09:27 | Emergency (ER) | payer MEDICAID ==
[~2017-06-02] VITALS: Ht 172.7 cm; Wt 70.0 kg
[2017-06-02 09:28] VITALS: BP 124/91
== END 2017-06-02 12:00 | disposition left against medical advice (07) ==
LOC: ER 09:27
DX: Z53.21 Procedure and treatment not carried out due to patient leaving prior to being seen by health care provider (principal)

== ENCOUNTER 2017-06-02 17:43 | Emergency (ER) | payer MEDICAID ==
[~2017-06-02] VITALS: Ht 172.7 cm; Wt 73.0 kg
[2017-06-02 17:46] VITALS: BP 128/94
== END 2017-06-02 22:50 | disposition left against medical advice (07) ==
LOC: ER 17:58
DX: Z53.21 Procedure and treatment not carried out due to patient leaving prior to being seen by health care provider (principal)

== ENCOUNTER 2017-06-19 18:53 | Emergency (ER) | payer MEDICAID ==
[~2017-06-19] VITALS: Ht 167.6 cm; Wt 68.0 kg
[2017-06-19 23:02] LABS: CLARITY URINE CLEAR (CLEAR); COLOR URINE YELLOW (YELLOW); KETONES URINE NEGATIVE (NEGATIVE); LEUKOCYTE ESTERASE URINE NEGATIVE (NEGATIVE); NITRITE URINE NEGATIVE (NEGATIVE); OCCULT BLOOD URINE NEGATIVE (NEGATIVE); PH URINE 5.5 (4.5-8.0); PROTEIN URINE NEGATIVE (NEGATIVE); SPECIFIC GRAVITY URINE 1.008 (1.005-1.030); UROBILINOGEN URINE 0.2 E.U./dL (0.2-1.0)
[2017-06-19 23:27] LABS: *AMPHETAMINES SCREEN URINE NEGATIVE (NEGATIVE); *BARBITURATES SCREEN URINE NEGATIVE (NEGATIVE); *BENZODIAZEPINES SCREEN URINE NEGATIVE (NEGATIVE); *COCAINE SCREEN URINE NEGATIVE (NEGATIVE); CANNABINOID URINE SCREEN NEGATIVE (NEGATIVE); METHADONE URINE SCREEN NEGATIVE (NEGATIVE); OPIATES URINE SCREEN NEGATIVE (NEGATIVE); PHENCYCLIDINE URINE SCREEN NEGATIVE (NEGATIVE)
[2017-06-19 23:27] LABS: BASOPHILS % 0.8 % (0.0-2.0); EOSINOPHILS % 1.2 % (0.0-5.0); HEMATOCRIT. 40.1 % (42.0-52.0); HEMOGLOBIN. 13.4 g/dL (14.0-18.0); LYMPHOCYTES % 63.5 % (20.0-50.0); MEAN CORPUSCULAR HEMOGLOBIN 32.7 pg (28.0-32.0); MEAN CORPUSCULAR VOLUME 98.2 fL (80.0-94.0); MONOCYTES % 6.6 % (2.0-8.0); NEUTROPHILS % 27.9 % (40.0-76.0); PLATELET 261 x1000/uL (130-400); RED BLOOD CELL COUNT 4.09 mill/uL (4.7-6.1); RED CELL DISTRIBUTION WIDTH 15.7 % (11.6-14.6)
[2017-06-19 23:42] LABS: CHLORIDE 113 mEq/L (98-107); CREATINE KINASE 276 IU/L (39-308)
[2017-06-20 00:09] LABS: ETHANOL BLOOD 367 mg/dL
[2017-06-20 06:10] VITALS: BP 121/81
== END 2017-06-20 09:01 | disposition home or self-care (01) ==
LOC: ER 19:04
DX: M54.9 Dorsalgia, unspecified (principal); I10 Essential (primary) hypertension; F10.20 Alcohol dependence, uncomplicated; R56.9 Unspecified convulsions; F17.200 Nicotine dependence, unspecified, uncomplicated; Z88.0 Allergy status to penicillin; W19.XXXA Unspecified fall, initial encounter; Y93.89 Activity, other specified; Y92.008 Other place in unspecified non-institutional (private) residence as the place of occurrence of the external cause; Y99.8 Other external cause status
CPT/HCPCS: 36415; 70450; 71045; 80053; 80305; 81003; 82550; 82962; 85025; 93005; 99285; G0482; Z7610

== ENCOUNTER 2017-06-26 13:02 | Emergency (ER) | payer MEDICAID ==
[~2017-06-26] VITALS: Ht 172.7 cm; Wt 70.0 kg
[2017-06-26 16:19] LABS: BASOPHILS % 0.6 % (0.0-2.0); EOSINOPHILS % 1.4 % (0.0-5.0); HEMATOCRIT. 42.6 % (42.0-52.0); HEMOGLOBIN. 14.2 g/dL (14.0-18.0); LYMPHOCYTES % 52.5 % (20.0-50.0); MEAN CORPUSCULAR HEMOGLOBIN 32.6 pg (28.0-32.0); MEAN CORPUSCULAR VOLUME 97.9 fL (80.0-94.0); MEAN PLATELET VOLUME 7.1 fl (7.4-10.4); MONOCYTES % 5.5 % (2.0-8.0); PLATELET 184 x1000/uL (130-400); RED BLOOD CELL COUNT 4.35 mill/uL (4.7-6.1); RED CELL DISTRIBUTION WIDTH 15.9 % (11.6-14.6)
[2017-06-26 16:33] LABS: CARBON DIOXIDE 25 mEq/L (21-32); CHLORIDE 109 mEq/L (98-107)
[2017-06-26 16:45] LABS: *AMPHETAMINES SCREEN URINE NEGATIVE (NEGATIVE); *BARBITURATES SCREEN URINE NEGATIVE (NEGATIVE); *BENZODIAZEPINES SCREEN URINE NEGATIVE (NEGATIVE); *COCAINE SCREEN URINE NEGATIVE (NEGATIVE); CANNABINOID URINE SCREEN PRESUMTIVE POSITIVE (NEGATIVE); METHADONE URINE SCREEN NEGATIVE (NEGATIVE); OPIATES URINE SCREEN NEGATIVE (NEGATIVE); PHENCYCLIDINE URINE SCREEN NEGATIVE (NEGATIVE)
[2017-06-26 16:56] LABS: ETHANOL BLOOD 408 mg/dL
[2017-06-26 17:54] VITALS: BP 105/80
== END 2017-06-26 18:00 | disposition home or self-care (01) ==
LOC: ER 13:12
DX: F10.229 Alcohol dependence with intoxication, unspecified (principal); I10 Essential (primary) hypertension; Z88.0 Allergy status to penicillin
CPT/HCPCS: 36415; 80053; 80305; 80307; 80329; 82962; 85025; 99284; G0482

== ENCOUNTER 2017-06-27 00:59 | Emergency (ER) | payer MEDICAID ==
[~2017-06-27] VITALS: Ht 175.3 cm; Wt 78.0 kg
[2017-06-27] MEDS ORDERED: SODIUM CHLORIDE 0.9% 1,000 ML IV ONE (02:02)
[2017-06-27] MEDS ORDERED: ONDANSETRON HCL 4MG/2ML VIAL IV STA (02:02)
[2017-06-27] MEDS ORDERED: KETOROLAC 30MG/ML VIAL IV STA (02:02)
[2017-06-27] MEDS ORDERED: LEVETIRACETAM 500MG PREMIX 100 ML IV ONE (02:15)
[2017-06-27 02:46] LABS: BASOPHILS % 1.5 % (0.0-2.0); CHLORIDE 109 mEq/L (98-107); EOSINOPHILS % 1.4 % (0.0-5.0); HEMATOCRIT. 45.5 % (42.0-52.0); HEMOGLOBIN. 15.4 g/dL (14.0-18.0); LYMPHOCYTES % 58.8 % (20.0-50.0); MEAN CORPUSCULAR HEMOGLOBIN 33.2 pg (28.0-32.0); MEAN CORPUSCULAR VOLUME 98.1 fL (80.0-94.0); MEAN PLATELET VOLUME 7.4 fl (7.4-10.4); MONOCYTES % 5.6 % (2.0-8.0); NEUTROPHILS % 32.7 % (40.0-76.0); PLATELET 186 x1000/uL (130-400); RED BLOOD CELL COUNT 4.64 mill/uL (4.7-6.1); RED CELL DISTRIBUTION WIDTH 16.1 % (11.6-14.6)
[2017-06-27 02:56] LABS: CREATINE KINASE 550 IU/L (39-308)
[2017-06-27 03:11] LABS: CLARITY URINE CLEAR (CLEAR); COLOR URINE YELLOW (YELLOW); KETONES URINE NEGATIVE (NEGATIVE); LEUKOCYTE ESTERASE URINE NEGATIVE (NEGATIVE); NITRITE URINE NEGATIVE (NEGATIVE); OCCULT BLOOD URINE TRACE (NEGATIVE); PROTEIN URINE TRACE (NEGATIVE); SPECIFIC GRAVITY URINE 1.012 (1.005-1.030); UROBILINOGEN URINE 0.2 E.U./dL (0.2-1.0)
[2017-06-27 03:18] LABS: ETHANOL BLOOD 432 mg/dL
[2017-06-27 03:58] LABS: *AMPHETAMINES SCREEN URINE NEGATIVE (NEGATIVE); *BARBITURATES SCREEN URINE NEGATIVE (NEGATIVE); *BENZODIAZEPINES SCREEN URINE NEGATIVE (NEGATIVE); *COCAINE SCREEN URINE NEGATIVE (NEGATIVE); CANNABINOID URINE SCREEN PRESUMTIVE POSITIVE (NEGATIVE); METHADONE URINE SCREEN NEGATIVE (NEGATIVE); OPIATES URINE SCREEN NEGATIVE (NEGATIVE); PHENCYCLIDINE URINE SCREEN NEGATIVE (NEGATIVE)
[2017-06-27 06:26] VITALS: BP 108/71
[2017-06-27 06:53] LABS: CREATINE KINASE 472 IU/L (39-308)
== END 2017-06-27 06:27 | disposition home or self-care (01) ==
LOC: ER 00:59
DX: G31.2 Degeneration of nervous system due to alcohol (principal); F10.229 Alcohol dependence with intoxication, unspecified; R56.9 Unspecified convulsions; F17.200 Nicotine dependence, unspecified, uncomplicated; Z88.0 Allergy status to penicillin
CPT/HCPCS: 36415; 71045; 80053; 80305; 81001; 82550; 83690; 85025; 93005; 96365; 96375; 99285; G0482; J1885; J1953; J2405; J7030

== ENCOUNTER 2017-06-28 21:09 | Emergency (ER) | payer MEDICAID ==
[~2017-06-28] VITALS: Ht 175.3 cm; Wt 76.0 kg
[2017-06-28 21:28] VITALS: BP 136/88
== END 2017-06-29 01:55 | disposition left against medical advice (07) ==
LOC: ER 21:14
DX: Z53.21 Procedure and treatment not carried out due to patient leaving prior to being seen by health care provider (principal)

== ENCOUNTER 2017-07-01 23:00 | Emergency (ER) | payer MEDICAID ==
[~2017-07-01] VITALS: Ht 167.6 cm; Wt 72.0 kg
[2017-07-01 23:13] VITALS: BP 142/91
== END 2017-07-02 07:32 | disposition left against medical advice (07) ==
LOC: ER 23:00
DX: R10.9 Unspecified abdominal pain (principal); Z53.21 Procedure and treatment not carried out due to patient leaving prior to being seen by health care provider

== ENCOUNTER 2017-07-07 21:37 | Emergency (ER) | payer MEDICAID ==
[~2017-07-07] VITALS: Ht 170.2 cm; Wt 73.0 kg
[2017-07-07 21:40] VITALS: BP 143/102
== END 2017-07-08 00:58 | disposition left against medical advice (07) ==
LOC: ER 21:37
DX: R10.9 Unspecified abdominal pain (principal); Z53.21 Procedure and treatment not carried out due to patient leaving prior to being seen by health care provider

== ENCOUNTER 2017-07-09 15:47 | Emergency (ER) | payer MEDICAID ==
[~2017-07-09] VITALS: Ht 175.3 cm; Wt 80.0 kg
[2017-07-09] MEDS ORDERED: FOLIC ACID 1 MG, THIAMINE HCL 100 MG, MVI, ADULT NO.1 10 ML in DEXTROSE 5% WATER 1,000 ML IV ONE ×4 (18:30)
[2017-07-09 18:59] LABS: CLARITY URINE CLEAR (CLEAR); COLOR URINE YELLOW (YELLOW); KETONES URINE NEGATIVE (NEGATIVE); LEUKOCYTE ESTERASE URINE NEGATIVE (NEGATIVE); NITRITE URINE NEGATIVE (NEGATIVE); OCCULT BLOOD URINE NEGATIVE (NEGATIVE); PROTEIN URINE NEGATIVE (NEGATIVE); SPECIFIC GRAVITY URINE 1.013 (1.005-1.030); UROBILINOGEN URINE 0.2 E.U./dL (0.2-1.0)
[2017-07-09 19:05] LABS: BASOPHILS % 0.9 % (0.0-2.0); EOSINOPHILS % 1.1 % (0.0-5.0); HEMATOCRIT. 41.8 % (42.0-52.0); HEMOGLOBIN. 14.4 g/dL (14.0-18.0); LYMPHOCYTES % 63.5 % (20.0-50.0); MEAN CORPUSCULAR HEMOGLOBIN 33.4 pg (28.0-32.0); MEAN CORPUSCULAR VOLUME 97.4 fL (80.0-94.0); MEAN PLATELET VOLUME 7.1 fl (7.4-10.4); MONOCYTES % 7.2 % (2.0-8.0); NEUTROPHILS % 27.3 % (40.0-76.0); PLATELET 155 x1000/uL (130-400); RED BLOOD CELL COUNT 4.29 mill/uL (4.7-6.1); RED CELL DISTRIBUTION WIDTH 16.3 % (11.6-14.6)
[2017-07-09 19:18] LABS: *AMPHETAMINES SCREEN URINE NEGATIVE (NEGATIVE); *BARBITURATES SCREEN URINE NEGATIVE (NEGATIVE); *BENZODIAZEPINES SCREEN URINE NEGATIVE (NEGATIVE); *COCAINE SCREEN URINE NEGATIVE (NEGATIVE); CANNABINOID URINE SCREEN NEGATIVE (NEGATIVE); METHADONE URINE SCREEN NEGATIVE (NEGATIVE); OPIATES URINE SCREEN NEGATIVE (NEGATIVE); PHENCYCLIDINE URINE SCREEN NEGATIVE (NEGATIVE)
[2017-07-09 19:19] LABS: CHLORIDE 110 mEq/L (98-107)
[2017-07-09 19:27] LABS: ETHANOL BLOOD 436 mg/dL
[2017-07-10 04:31] VITALS: BP 130/69
== END 2017-07-10 06:23 | disposition home or self-care (01) ==
LOC: ER 15:58
DX: F10.229 Alcohol dependence with intoxication, unspecified (principal); R56.9 Unspecified convulsions; I10 Essential (primary) hypertension; Y90.8 Blood alcohol level of 240 mg/100 ml or more; Z88.0 Allergy status to penicillin
CPT/HCPCS: 36415; 80053; 80305; 81003; 82542; 85025; 96365; 99284; G0482; J3411; J3490; J7070

== ENCOUNTER 2017-07-10 14:41 | Emergency (ER) | payer MEDICAID ==
[~2017-07-10] VITALS: Ht 180.3 cm; Wt 81.0 kg
[2017-07-10] MEDS ORDERED: FAMOTIDINE 20MG/2ML VIAL IV STA (14:51)
[2017-07-10] MEDS ORDERED: ONDANSETRON HCL 4MG/2ML VIAL IV STA (14:51)
[2017-07-10 15:22] LABS: EOSINOPHILS % 0.4 % (0.0-5.0); HEMATOCRIT. 41.4 % (42.0-52.0); HEMOGLOBIN. 14.1 g/dL (14.0-18.0); LYMPHOCYTES % 53.7 % (20.0-50.0); MEAN CORPUSCULAR HEMOGLOBIN 33.3 pg (28.0-32.0); MONOCYTES % 6.9 % (2.0-8.0); PLATELET 177 x1000/uL (130-400); RED BLOOD CELL COUNT 4.23 mill/uL (4.7-6.1); RED CELL DISTRIBUTION WIDTH 16.5 % (11.6-14.6)
[2017-07-10 15:25] LABS: CHLORIDE 107 mEq/L (98-107); INR 1.1; PROTHROMBIN TIME 11.6 sec (9.4-11.6)
[2017-07-10 15:46] LABS: ETHANOL BLOOD 390 mg/dL
[2017-07-10 17:19] LABS: CLARITY URINE CLEAR (CLEAR); COLOR URINE YELLOW (YELLOW); KETONES URINE NEGATIVE (NEGATIVE); LEUKOCYTE ESTERASE URINE NEGATIVE (NEGATIVE); NITRITE URINE NEGATIVE (NEGATIVE); OCCULT BLOOD URINE NEGATIVE (NEGATIVE); PROTEIN URINE NEGATIVE (NEGATIVE); SPECIFIC GRAVITY URINE 1.014 (1.005-1.030); UROBILINOGEN URINE 0.2 E.U./dL (0.2-1.0)
[2017-07-10 18:52] VITALS: BP 103/68
== END 2017-07-10 19:03 | disposition home or self-care (01) ==
LOC: ER 14:53
DX: F10.129 Alcohol abuse with intoxication, unspecified (principal); R10.9 Unspecified abdominal pain; R11.0 Nausea; I10 Essential (primary) hypertension; Z88.0 Allergy status to penicillin
CPT/HCPCS: 36415; 76705; 80053; 81003; 83690; 85025; 85610; 96374; 96375; 99285; G0482; J2405; J3490; Z7610

== ENCOUNTER 2017-07-11 14:51 | Emergency (ER) | payer MEDICAID ==
[~2017-07-11] VITALS: Ht 175.3 cm; Wt 76.0 kg
[2017-07-11 15:56] LABS: EOSINOPHILS % 0.2 % (0.0-5.0); HEMATOCRIT. 40.6 % (42.0-52.0); HEMOGLOBIN. 13.9 g/dL (14.0-18.0); LYMPHOCYTES % 53.8 % (20.0-50.0); MEAN CORPUSCULAR HEMOGLOBIN 33.4 pg (28.0-32.0); MEAN CORPUSCULAR VOLUME 97.8 fL (80.0-94.0); MEAN PLATELET VOLUME 6.6 fl (7.4-10.4); MONOCYTES % 8.3 % (2.0-8.0); NEUTROPHILS % 36.7 % (40.0-76.0); PLATELET 178 x1000/uL (130-400); RED BLOOD CELL COUNT 4.15 mill/uL (4.7-6.1); RED CELL DISTRIBUTION WIDTH 16.1 % (11.6-14.6)
[2017-07-11 16:02] LABS: PROTHROMBIN TIME 10.7 sec (9.4-11.6)
[2017-07-11 16:13] LABS: CHLORIDE 103 mEq/L (98-107)
[2017-07-11 16:17] LABS: ETHANOL BLOOD 370 mg/dL
[2017-07-11 18:29] VITALS: BP 118/68
== END 2017-07-11 18:29 | disposition home or self-care (01) ==
LOC: ER 15:10
DX: F10.129 Alcohol abuse with intoxication, unspecified (principal); I10 Essential (primary) hypertension; Y90.8 Blood alcohol level of 240 mg/100 ml or more; Z88.0 Allergy status to penicillin
CPT/HCPCS: 36415; 80053; 85025; 85610; 99284; G0482

== ENCOUNTER 2017-07-17 00:55 | Emergency (ER) | payer MEDICAID ==
[~2017-07-17] VITALS: Ht 165.1 cm; Wt 68.0 kg
[2017-07-17 01:35] VITALS: BP 163/109
== END 2017-07-17 02:38 | disposition left against medical advice (07) ==
LOC: ER 01:13
DX: R56.9 Unspecified convulsions (principal); Z53.21 Procedure and treatment not carried out due to patient leaving prior to being seen by health care provider

== ENCOUNTER 2017-07-17 14:50 | Emergency (ER) | payer MEDICAID ==
[~2017-07-17] VITALS: Ht 172.7 cm; Wt 85.0 kg
[2017-07-17 19:05] VITALS: BP 118/77
[2017-07-17 20:21] LABS: BASOPHILS % 0.7 % (0.0-2.0); EOSINOPHILS % 0.6 % (0.0-5.0); HEMATOCRIT. 40.4 % (42.0-52.0); HEMOGLOBIN. 13.6 g/dL (14.0-18.0); LYMPHOCYTES % 49.3 % (20.0-50.0); MEAN CORPUSCULAR HEMOGLOBIN 32.9 pg (28.0-32.0); MEAN CORPUSCULAR VOLUME 97.6 fL (80.0-94.0); MEAN PLATELET VOLUME 8.2 fl (7.4-10.4); MONOCYTES % 9.6 % (2.0-8.0); NEUTROPHILS % 39.8 % (40.0-76.0); PLATELET 140 x1000/uL (130-400); RED BLOOD CELL COUNT 4.13 mill/uL (4.7-6.1); RED CELL DISTRIBUTION WIDTH 16.3 % (11.6-14.6)
[2017-07-17 20:27] LABS: INR 1.1; PROTHROMBIN TIME 11.1 sec (9.4-11.6)
[2017-07-17 20:32] LABS: CHLORIDE 105 mEq/L (98-107); ETHANOL BLOOD 277 mg/dL
[2017-07-17] MEDS ORDERED: FAMOTIDINE 20MG TABLET PO ONE (20:45)
[2017-07-17 21:01] LABS: CLARITY URINE CLEAR (CLEAR); COLOR URINE YELLOW (YELLOW); KETONES URINE TRACE (NEGATIVE); LEUKOCYTE ESTERASE URINE NEGATIVE (NEGATIVE); NITRITE URINE NEGATIVE (NEGATIVE); OCCULT BLOOD URINE TRACE (NEGATIVE); PROTEIN URINE TRACE (NEGATIVE); SPECIFIC GRAVITY URINE 1.018 (1.005-1.030); UROBILINOGEN URINE 0.2 E.U./dL (0.2-1.0)
[2017-07-17 21:26] LABS: *COCAINE SCREEN URINE NEGATIVE (NEGATIVE); CANNABINOID URINE SCREEN PRESUMTIVE POSITIVE (NEGATIVE); METHADONE URINE SCREEN NEGATIVE (NEGATIVE); OPIATES URINE SCREEN NEGATIVE (NEGATIVE); PHENCYCLIDINE URINE SCREEN NEGATIVE (NEGATIVE)
[2017-07-17 21:27] LABS: *AMPHETAMINES SCREEN URINE NEGATIVE (NEGATIVE); *BARBITURATES SCREEN URINE NEGATIVE (NEGATIVE); *BENZODIAZEPINES SCREEN URINE NEGATIVE (NEGATIVE)
[2017-07-17] MEDS ORDERED: IPRATROPIUM/ALBUTEROL 0.5-3(2.5)MG/3ML NEB INH PRN (22:00)
[2017-07-17] MEDS ORDERED: DIPHENHYDRAMINE 50MG/ML VIAL IV PRN (22:00)
[2017-07-17] MEDS ORDERED: MAGNESIUM/ALUMINUM HYDROXIDE/SIMETHICONE 30ML UDC PO PRN (22:00)
[2017-07-17] MEDS ORDERED: DOCUSATE SODIUM 100MG CAPSULE PO PRN (22:00)
[2017-07-17] MEDS ORDERED: ACETAMINOPHEN 650MG/20.3ML UDC GT PRN (22:00)
[2017-07-17] MEDS ORDERED: NA PHOS,M-B/NA PHOS,DI-BA ENEMA 118ML PR PRN (22:00)
[2017-07-17] MEDS ORDERED: GUAIFENESIN 200MG/10ML SUGAR FREE UDC PO PRN (22:00)
[2017-07-17] MEDS ORDERED: ACETAMINOPHEN 325MG TABLET PO PRN (22:00)
[2017-07-17] MEDS ORDERED: ACETAMINOPHEN 650MG SUPP PR PRN (22:00)
[2017-07-17] MEDS ORDERED: ONDANSETRON HCL 4MG/2ML VIAL IV PRN (22:00)
[2017-07-17] MEDS ORDERED: CLONIDINE 0.1MG TABLET PO PRN (22:00)
[2017-07-17] MEDS ORDERED: HYDROCODONE/ACETAMINOPHEN 5/325MG TABLET PO PRN (22:00)
[2017-07-18] MEDS ORDERED: SODIUM CHLORIDE 0.9% 1,000 ML IV SCH (03:00)
[2017-07-18] MEDS ORDERED: SODIUM CHLORIDE 0.9% INJ 3ML FLUSH IVF SCH (06:00)
[2017-07-18] MEDS ORDERED: ASPIRIN 81MG EC TABLET PO SCH (09:00)
[2017-07-18] MEDS ORDERED: ENOXAPARIN 40MG/0.4ML SYR SUBCUT SCH (09:00)
== END 2017-07-17 21:50 | disposition left against medical advice (07) ==
LOC: ER 14:50 → UNDOADMIN 22:22 → 7WST 22:22 → UNDOADMIN 22:28 → 7WST 22:28 → ENRESERV 22:42
DX: R10.13 Epigastric pain (principal); R11.10 Vomiting, unspecified; F32.9 Major depressive disorder, single episode, unspecified; E11.9 Type 2 diabetes mellitus without complications; I10 Essential (primary) hypertension; R56.9 Unspecified convulsions; F17.200 Nicotine dependence, unspecified, uncomplicated; W19.XXXA Unspecified fall, initial encounter; Y93.89 Activity, other specified; Y99.8 Other external cause status; Y92.89 Other specified places as the place of occurrence of the external cause; Z79.82 Long term (current) use of aspirin; Z88.0 Allergy status to penicillin
CPT/HCPCS: 36415; 70450; 80053; 80061; 80305; 81003; 83036; 83690; 85025; 85610; 99285; G0482

== ENCOUNTER 2017-07-19 16:27 | Emergency (ER) | payer MEDICAID ==
[~2017-07-19] VITALS: Ht 167.6 cm; Wt 75.0 kg
[2017-07-19 16:29] VITALS: BP 108/59
== END 2017-07-19 20:56 | disposition left against medical advice (07) ==
LOC: ER 16:37
DX: Z53.21 Procedure and treatment not carried out due to patient leaving prior to being seen by health care provider (principal)

== ENCOUNTER 2017-07-29 23:53 | Emergency (ER) | payer MEDICAID ==
[~2017-07-29] VITALS: Ht 162.6 cm; Wt 59.0 kg
[2017-07-30 05:34] LABS: CLARITY URINE CLEAR (CLEAR); COLOR URINE YELLOW (YELLOW); KETONES URINE NEGATIVE (NEGATIVE); LEUKOCYTE ESTERASE URINE NEGATIVE (NEGATIVE); NITRITE URINE NEGATIVE (NEGATIVE); OCCULT BLOOD URINE TRACE (NEGATIVE); PROTEIN URINE NEGATIVE (NEGATIVE); SPECIFIC GRAVITY URINE 1.018 (1.005-1.030); UROBILINOGEN URINE 0.2 E.U./dL (0.2-1.0)
[2017-07-30 05:52] LABS: BASOPHILS % 0.8 % (0.0-2.0); EOSINOPHILS % 0.6 % (0.0-5.0); HEMATOCRIT. 41.2 % (42.0-52.0); HEMOGLOBIN. 13.9 g/dL (14.0-18.0); LYMPHOCYTES % 48.9 % (20.0-50.0); MEAN CORPUSCULAR HEMOGLOBIN 33.2 pg (28.0-32.0); MEAN CORPUSCULAR VOLUME 98.4 fL (80.0-94.0); MEAN PLATELET VOLUME 7.8 fl (7.4-10.4); MONOCYTES % 9.2 % (2.0-8.0); NEUTROPHILS % 40.5 % (40.0-76.0); PLATELET 119 x1000/uL (130-400); RED BLOOD CELL COUNT 4.19 mill/uL (4.7-6.1); RED CELL DISTRIBUTION WIDTH 16.4 % (11.6-14.6)
[2017-07-30 05:54] LABS: CHLORIDE 110 mEq/L (98-107)
[2017-07-30 06:12] LABS: ETHANOL BLOOD 359 mg/dL
[2017-07-30] MEDS ORDERED: FOLIC ACID 1 MG, THIAMINE HCL 100 MG, MVI, ADULT NO.1 10 ML in DEXTROSE 5% WATER 1,000 ML IV ONE ×4 (06:15)
[2017-07-30] MEDS ORDERED: LEVETIRACETAM 500MG TABLET PO ONE (06:15)
[2017-07-30] MEDS ORDERED: ONDANSETRON HCL 4MG/2ML VIAL IV ONE (06:15)
[2017-07-30 06:21] LABS: *AMPHETAMINES SCREEN URINE NEGATIVE (NEGATIVE); *BARBITURATES SCREEN URINE NEGATIVE (NEGATIVE); *BENZODIAZEPINES SCREEN URINE NEGATIVE (NEGATIVE); *COCAINE SCREEN URINE NEGATIVE (NEGATIVE); CANNABINOID URINE SCREEN PRESUMTIVE POSITIVE (NEGATIVE); METHADONE URINE SCREEN NEGATIVE (NEGATIVE); OPIATES URINE SCREEN NEGATIVE (NEGATIVE); PHENCYCLIDINE URINE SCREEN NEGATIVE (NEGATIVE)
[2017-07-30] MEDS ORDERED: FAMOTIDINE 20MG/2ML VIAL IV ONE (06:30)
[2017-07-30 09:41] VITALS: BP 124/83
== END 2017-07-30 09:59 | disposition home or self-care (01) ==
LOC: ER 23:53
DX: T51.0X1A Toxic effect of ethanol, accidental (unintentional), initial encounter (principal); G92 Toxic encephalopathy; G40.909 Epilepsy, unspecified, not intractable, without status epilepticus; F10.229 Alcohol dependence with intoxication, unspecified; I10 Essential (primary) hypertension; Z88.0 Allergy status to penicillin; Z91.19 Patient's noncompliance with other medical treatment and regimen; Y92.89 Other specified places as the place of occurrence of the external cause; Y90.8 Blood alcohol level of 240 mg/100 ml or more
CPT/HCPCS: 36415; 80053; 80305; 80307; 80329; 81003; 83690; 85025; 96365; 96375; 99284; G0482; J2405; J3411; J3490; J7070; Z7610

== ENCOUNTER 2017-08-21 16:32 | Emergency (ER) | payer MEDICAID ==
[~2017-08-21] VITALS: Ht 175.3 cm; Wt 72.0 kg
[2017-08-21] MEDS ORDERED: HALOPERIDOL LACTATE 5MG/ML VIAL IM STA (16:42)
[2017-08-21] MEDS ORDERED: HALOPERIDOL LACTATE 5MG/ML VIAL IM ONE (16:49)
[2017-08-21 17:36] LABS: CHLORIDE 106 mEq/L (98-107)
[2017-08-21 17:37] LABS: PROTHROMBIN TIME 10.9 sec (9.4-11.6)
[2017-08-21 17:41] LABS: BASOPHILS % 0.9 % (0.0-2.0); HEMATOCRIT. 41.3 % (42.0-52.0); HEMOGLOBIN. 14.4 g/dL (14.0-18.0); LYMPHOCYTES % 46.9 % (20.0-50.0); MEAN CORPUSCULAR HEMOGLOBIN 34.1 pg (28.0-32.0); MEAN CORPUSCULAR VOLUME 97.8 fL (80.0-94.0); MEAN PLATELET VOLUME 7.7 fl (7.4-10.4); MONOCYTES % 10.7 % (2.0-8.0); NEUTROPHILS % 40.5 % (40.0-76.0); PLATELET 194 x1000/uL (130-400); RED BLOOD CELL COUNT 4.22 mill/uL (4.7-6.1); RED CELL DISTRIBUTION WIDTH 15.3 % (11.6-14.6)
[2017-08-21 17:58] LABS: ETHANOL BLOOD 321 mg/dL
[2017-08-21 21:53] VITALS: BP 112/78
== END 2017-08-21 22:07 | disposition home or self-care (01) ==
LOC: ER 16:39
DX: F10.229 Alcohol dependence with intoxication, unspecified (principal); I10 Essential (primary) hypertension; R56.9 Unspecified convulsions; Z88.0 Allergy status to penicillin
CPT/HCPCS: 36415; 80053; 80307; 80329; 85025; 85610; 96372; 99284; G0482; J1630

== ENCOUNTER 2017-08-26 20:30 | Emergency (ER) | payer MEDICAID ==
[~2017-08-26] VITALS: Ht 172.7 cm; Wt 78.0 kg
[2017-08-26 20:49] VITALS: BP 124/88
== END 2017-08-26 22:00 | disposition left against medical advice (07) ==
LOC: ER 20:30
DX: M79.641 Pain in right hand (principal); R51 Headache; Z53.21 Procedure and treatment not carried out due to patient leaving prior to being seen by health care provider

== ENCOUNTER 2017-09-04 16:53 | Emergency (ER) | payer MEDICAID ==
[~2017-09-04] VITALS: Ht 167.6 cm; Wt 71.0 kg
[2017-09-04 20:23] LABS: CLARITY URINE CLOUDY (CLEAR); COLOR URINE YELLOW (YELLOW); KETONES URINE TRACE (NEGATIVE); LEUKOCYTE ESTERASE URINE NEGATIVE (NEGATIVE); NITRITE URINE NEGATIVE (NEGATIVE); OCCULT BLOOD URINE NEGATIVE (NEGATIVE); PROTEIN URINE 1+ (NEGATIVE)
[2017-09-04 20:37] LABS: *AMPHETAMINES SCREEN URINE NEGATIVE (NEGATIVE); *BARBITURATES SCREEN URINE NEGATIVE (NEGATIVE); *BENZODIAZEPINES SCREEN URINE NEGATIVE (NEGATIVE); *COCAINE SCREEN URINE NEGATIVE (NEGATIVE); METHADONE URINE SCREEN NEGATIVE (NEGATIVE); OPIATES URINE SCREEN NEGATIVE (NEGATIVE)
[2017-09-04 20:38] LABS: CANNABINOID URINE SCREEN PRESUMTIVE POSITIVE (NEGATIVE); PHENCYCLIDINE URINE SCREEN NEGATIVE (NEGATIVE)
[2017-09-04] MEDS ORDERED: ONDANSETRON HCL 4MG/2ML VIAL IV ONE (20:45)
[2017-09-04] MEDS ORDERED: SODIUM CHLORIDE 0.9% 1000ML BAG IV ONE (20:45)
[2017-09-04] MEDS ORDERED: MECLIZINE 25MG TABLET PO ONE (20:45)
[2017-09-04] MEDS ORDERED: SODIUM CHLORIDE 0.9% 250 ML IV ONE (21:00)
[2017-09-05 06:35] VITALS: BP 127/84
== END 2017-09-05 07:15 | disposition home or self-care (01) ==
LOC: ER 16:53
DX: S09.8XXA Other specified injuries of head, initial encounter (principal); F10.229 Alcohol dependence with intoxication, unspecified; I10 Essential (primary) hypertension; F17.200 Nicotine dependence, unspecified, uncomplicated; R56.9 Unspecified convulsions; F12.10 Cannabis abuse, uncomplicated; W01.0XXA Fall on same level from slipping, tripping and stumbling without subsequent striking against object, initial encounter; Y93.89 Activity, other specified; Y99.8 Other external cause status; Y92.89 Other specified places as the place of occurrence of the external cause; Z88.0 Allergy status to penicillin; Y90.8 Blood alcohol level of 240 mg/100 ml or more
CPT/HCPCS: 36415; 70450; 80305; 81003; 96361; 96374; 99285; G0482; J2405; J7030; Z7610; J7050; J8597

== ENCOUNTER 2017-09-06 19:10 | Emergency (ER) | payer MEDICAID ==
[~2017-09-06] VITALS: Ht 165.1 cm; Wt 71.0 kg
[2017-09-06] MEDS ORDERED: FAMOTIDINE 20MG/2ML VIAL IV STA (22:49)
[2017-09-06 23:03] LABS: CLARITY URINE CLEAR (CLEAR); COLOR URINE YELLOW (YELLOW); KETONES URINE NEGATIVE (NEGATIVE); LEUKOCYTE ESTERASE URINE NEGATIVE (NEGATIVE); NITRITE URINE NEGATIVE (NEGATIVE); OCCULT BLOOD URINE 1+ (NEGATIVE); PROTEIN URINE 1+ (NEGATIVE); SPECIFIC GRAVITY URINE 1.016 (1.005-1.030); UROBILINOGEN URINE 0.2 E.U./dL (0.2-1.0)
[2017-09-06 23:08] LABS: BASOPHILS % 0.6 % (0.0-2.0); HEMATOCRIT. 41.8 % (42.0-52.0); HEMOGLOBIN. 14.6 g/dL (14.0-18.0); LYMPHOCYTES % 59.5 % (20.0-50.0); MEAN CORPUSCULAR HEMOGLOBIN 34.3 pg (28.0-32.0); MEAN CORPUSCULAR VOLUME 98.2 fL (80.0-94.0); MEAN PLATELET VOLUME 6.6 fl (7.4-10.4); MONOCYTES % 8.3 % (2.0-8.0); NEUTROPHILS % 30.6 % (40.0-76.0); PLATELET 192 x1000/uL (130-400); RED BLOOD CELL COUNT 4.26 mill/uL (4.7-6.1)
[2017-09-06 23:14] LABS: CHLORIDE 111 mEq/L (98-107)
[2017-09-06 23:17] LABS: PROTHROMBIN TIME 10.3 sec (9.4-11.6)
[2017-09-06 23:44] LABS: ETHANOL BLOOD 385 mg/dL
[2017-09-07 01:35] VITALS: BP 124/73
== END 2017-09-07 02:21 | disposition home or self-care (01) ==
LOC: ER 19:10
DX: F10.229 Alcohol dependence with intoxication, unspecified (principal); R56.9 Unspecified convulsions; I10 Essential (primary) hypertension; Z88.0 Allergy status to penicillin
CPT/HCPCS: 36415; 71045; 80053; 81003; 83690; 85025; 85610; 93005; 96374; 99285; G0482; J3490; Z7610

== ENCOUNTER 2017-09-07 03:09 | Emergency (ER) | payer MEDICAID ==
[~2017-09-07] VITALS: Ht 165.1 cm; Wt 59.0 kg
[2017-09-07 12:10] VITALS: BP 156/94
== END 2017-09-07 12:13 | disposition home or self-care (01) ==
LOC: ER 03:09
DX: M79.641 Pain in right hand (principal); F10.229 Alcohol dependence with intoxication, unspecified; F17.200 Nicotine dependence, unspecified, uncomplicated; G40.909 Epilepsy, unspecified, not intractable, without status epilepticus; Z59.0 Homelessness; Z88.0 Allergy status to penicillin; Y90.9 Presence of alcohol in blood, level not specified; W01.0XXA Fall on same level from slipping, tripping and stumbling without subsequent striking against object, initial encounter; Y93.89 Activity, other specified; Y92.89 Other specified places as the place of occurrence of the external cause
CPT/HCPCS: 73130; 99284

== ENCOUNTER 2017-09-22 00:24 | Emergency (ER) | payer MEDICAID ==
[~2017-09-22] VITALS: Ht 175.3 cm; Wt 77.0 kg
[2017-09-22 00:59] VITALS: BP 93/62
[2017-09-22 03:45] LABS: BASOPHILS % 1.3 % (0.0-2.0); EOSINOPHILS % 0.8 % (0.0-5.0); HEMATOCRIT. 42.4 % (42.0-52.0); HEMOGLOBIN. 14.3 g/dL (14.0-18.0); LYMPHOCYTES % 47.2 % (20.0-50.0); MEAN CORPUSCULAR HEMOGLOBIN 33.9 pg (28.0-32.0); MEAN CORPUSCULAR VOLUME 100.4 fL (80.0-94.0); MEAN PLATELET VOLUME 7.4 fl (7.4-10.4); MONOCYTES % 9.9 % (2.0-8.0); NEUTROPHILS % 40.8 % (40.0-76.0); PLATELET 219 x1000/uL (130-400); RED BLOOD CELL COUNT 4.22 mill/uL (4.7-6.1); RED CELL DISTRIBUTION WIDTH 15.5 % (11.6-14.6)
[2017-09-22 03:51] LABS: CHLORIDE 109 mEq/L (98-107)
[2017-09-22 03:54] LABS: ETHANOL BLOOD 278 mg/dL
[2017-09-22 04:15] LABS: CLARITY URINE CLEAR (CLEAR); COLOR URINE YELLOW (YELLOW); KETONES URINE NEGATIVE (NEGATIVE); LEUKOCYTE ESTERASE URINE NEGATIVE (NEGATIVE); NITRITE URINE NEGATIVE (NEGATIVE); OCCULT BLOOD URINE NEGATIVE (NEGATIVE); PROTEIN URINE NEGATIVE (NEGATIVE); SPECIFIC GRAVITY URINE 1.008 (1.005-1.030); UROBILINOGEN URINE 0.2 E.U./dL (0.2-1.0)
[2017-09-22 04:27] LABS: *AMPHETAMINES SCREEN URINE NEGATIVE (NEGATIVE); *BARBITURATES SCREEN URINE NEGATIVE (NEGATIVE); *BENZODIAZEPINES SCREEN URINE NEGATIVE (NEGATIVE); CANNABINOID URINE SCREEN NEGATIVE (NEGATIVE); METHADONE URINE SCREEN NEGATIVE (NEGATIVE)
[2017-09-22 04:28] LABS: *COCAINE SCREEN URINE NEGATIVE (NEGATIVE); OPIATES URINE SCREEN NEGATIVE (NEGATIVE); PHENCYCLIDINE URINE SCREEN NEGATIVE (NEGATIVE)
== END 2017-09-22 05:08 | disposition left against medical advice (07) ==
LOC: ER 00:24
DX: F32.9 Major depressive disorder, single episode, unspecified (principal); F10.10 Alcohol abuse, uncomplicated; R45.851 Suicidal ideations; G40.909 Epilepsy, unspecified, not intractable, without status epilepticus; I10 Essential (primary) hypertension; Y90.8 Blood alcohol level of 240 mg/100 ml or more; Z88.0 Allergy status to penicillin
CPT/HCPCS: 36415; 80048; 80305; 80307; 81003; 85025; 99284; G0482; Z7610

== ENCOUNTER 2017-09-23 20:29 | Emergency (ER) | payer MEDICAID ==
[~2017-09-23] VITALS: Ht 172.7 cm; Wt 75.0 kg
[2017-09-23 20:40] VITALS: BP 138/70
== END 2017-09-24 00:30 | disposition left against medical advice (07) ==
LOC: ER 20:29
DX: F10.129 Alcohol abuse with intoxication, unspecified (principal); Z53.21 Procedure and treatment not carried out due to patient leaving prior to being seen by health care provider

== ENCOUNTER 2017-09-30 21:08 | Emergency (ER) | payer MEDICAID ==
[~2017-09-30] VITALS: Ht 170.2 cm; Wt 75.0 kg
[2017-10-01] MEDS ORDERED: LEVETIRACETAM 250MG TABLET PO ONE (01:45)
[2017-10-01] MEDS ORDERED: LEVETIRACETAM 500MG TABLET PO NR (02:00)
[2017-10-01 02:22] LABS: BASOPHILS % 0.4 % (0.0-2.0); EOSINOPHILS % 1.5 % (0.0-5.0); HEMATOCRIT. 40.3 % (42.0-52.0); HEMOGLOBIN. 13.6 g/dL (14.0-18.0); LYMPHOCYTES % 56.9 % (20.0-50.0); MEAN CORPUSCULAR HEMOGLOBIN 33.2 pg (28.0-32.0); MEAN CORPUSCULAR VOLUME 98.3 fL (80.0-94.0); MEAN PLATELET VOLUME 7.6 fl (7.4-10.4); MONOCYTES % 5.4 % (2.0-8.0); NEUTROPHILS % 35.8 % (40.0-76.0); PLATELET 234 x1000/uL (130-400); RED CELL DISTRIBUTION WIDTH 14.8 % (11.6-14.6)
[2017-10-01 02:29] LABS: CHLORIDE 111 mEq/L (98-107)
[2017-10-01 02:57] LABS: ETHANOL BLOOD 379 mg/dL
[2017-10-01 02:59] LABS: CLARITY URINE CLEAR (CLEAR); COLOR URINE YELLOW (YELLOW); KETONES URINE NEGATIVE (NEGATIVE); LEUKOCYTE ESTERASE URINE NEGATIVE (NEGATIVE); NITRITE URINE NEGATIVE (NEGATIVE); OCCULT BLOOD URINE NEGATIVE (NEGATIVE); PROTEIN URINE NEGATIVE (NEGATIVE); UROBILINOGEN URINE 0.2 E.U./dL (0.2-1.0)
[2017-10-01 03:04] LABS: *BARBITURATES SCREEN URINE NEGATIVE (NEGATIVE)
[2017-10-01 03:06] LABS: *AMPHETAMINES SCREEN URINE NEGATIVE (NEGATIVE); *BENZODIAZEPINES SCREEN URINE NEGATIVE (NEGATIVE); *COCAINE SCREEN URINE NEGATIVE (NEGATIVE); CANNABINOID URINE SCREEN NEGATIVE (NEGATIVE); METHADONE URINE SCREEN NEGATIVE (NEGATIVE); OPIATES URINE SCREEN NEGATIVE (NEGATIVE); PHENCYCLIDINE URINE SCREEN NEGATIVE (NEGATIVE)
[2017-10-01 06:25] VITALS: BP 100/65
== END 2017-10-01 06:27 | disposition home or self-care (01) ==
LOC: ER 21:33
DX: F10.10 Alcohol abuse, uncomplicated (principal); R56.9 Unspecified convulsions; I10 Essential (primary) hypertension; Z88.0 Allergy status to penicillin; W01.0XXA Fall on same level from slipping, tripping and stumbling without subsequent striking against object, initial encounter; Y93.89 Activity, other specified; Y99.8 Other external cause status; Y92.89 Other specified places as the place of occurrence of the external cause; Y90.8 Blood alcohol level of 240 mg/100 ml or more
CPT/HCPCS: 36415; 70450; 80053; 80305; 81003; 85025; 99285; G0482

== ENCOUNTER 2017-10-03 21:04 | Emergency (ER) | payer MEDICAID ==
[~2017-10-03] VITALS: Ht 177.8 cm; Wt 73.0 kg
[2017-10-03] MEDS ORDERED: SODIUM CHLORIDE 0.9% 1,000 ML IV ONE (22:27)
[2017-10-03 23:19] LABS: BASOPHILS % 0.8 % (0.0-2.0); EOSINOPHILS % 0.7 % (0.0-5.0); HEMATOCRIT. 39.7 % (42.0-52.0); HEMOGLOBIN. 13.5 g/dL (14.0-18.0); LYMPHOCYTES % 65.1 % (20.0-50.0); MEAN CORPUSCULAR HEMOGLOBIN 33.1 pg (28.0-32.0); MEAN CORPUSCULAR VOLUME 97.2 fL (80.0-94.0); MEAN PLATELET VOLUME 7.7 fl (7.4-10.4); MONOCYTES % 4.6 % (2.0-8.0); NEUTROPHILS % 28.8 % (40.0-76.0); PLATELET 180 x1000/uL (130-400); RED BLOOD CELL COUNT 4.09 mill/uL (4.7-6.1)
[2017-10-03 23:26] LABS: CHLORIDE 109 mEq/L (98-107)
[2017-10-03 23:27] LABS: INR 1.1
[2017-10-04 00:27] LABS: ETHANOL BLOOD 398 mg/dL
[2017-10-04 06:06] VITALS: BP 126/74
== END 2017-10-04 06:10 | disposition home or self-care (01) ==
LOC: ER 21:04
DX: M54.5 Low back pain (principal); F10.129 Alcohol abuse with intoxication, unspecified; Y90.8 Blood alcohol level of 240 mg/100 ml or more; F32.9 Major depressive disorder, single episode, unspecified; F17.210 Nicotine dependence, cigarettes, uncomplicated; F12.90 Cannabis use, unspecified, uncomplicated; G40.909 Epilepsy, unspecified, not intractable, without status epilepticus; Z88.0 Allergy status to penicillin
CPT/HCPCS: 36415; 80053; 83690; 85025; 85610; 96360; 99284; G0482; J7030; Z7610

== ENCOUNTER 2017-10-21 00:39 | Emergency (ER) | payer MEDICAID ==
[~2017-10-21] VITALS: Ht 170.2 cm; Wt 73.0 kg
[2017-10-21 04:11] LABS: BASOPHILS % 0.6 % (0.0-2.0); EOSINOPHILS % 0.3 % (0.0-5.0); HEMATOCRIT. 36.3 % (42.0-52.0); HEMOGLOBIN. 12.3 g/dL (14.0-18.0); LYMPHOCYTES % 47.2 % (20.0-50.0); MEAN CORPUSCULAR HEMOGLOBIN 33.2 pg (28.0-32.0); MEAN CORPUSCULAR VOLUME 98.3 fL (80.0-94.0); MEAN PLATELET VOLUME 7.4 fl (7.4-10.4); MONOCYTES % 15.7 % (2.0-8.0); NEUTROPHILS % 36.2 % (40.0-76.0); PLATELET 143 x1000/uL (130-400); RED CELL DISTRIBUTION WIDTH 14.6 % (11.6-14.6)
[2017-10-21 04:15] LABS: CHLORIDE 109 mEq/L (98-107)
[2017-10-21 04:17] LABS: INR 1.1; PROTHROMBIN TIME 11.3 sec (9.4-11.6)
[2017-10-21 04:41] LABS: CLARITY URINE CLEAR (CLEAR); COLOR URINE YELLOW (YELLOW); KETONES URINE NEGATIVE (NEGATIVE); LEUKOCYTE ESTERASE URINE NEGATIVE (NEGATIVE); NITRITE URINE NEGATIVE (NEGATIVE); OCCULT BLOOD URINE TRACE (NEGATIVE); PROTEIN URINE NEGATIVE (NEGATIVE); SPECIFIC GRAVITY URINE 1.015 (1.005-1.030); UROBILINOGEN URINE 0.2 E.U./dL (0.2-1.0)
[2017-10-21 05:46] VITALS: BP 125/84
== END 2017-10-21 06:05 | disposition home or self-care (01) ==
LOC: ER 00:39 → CANBEDREQ 06:19
DX: F10.20 Alcohol dependence, uncomplicated (principal); I10 Essential (primary) hypertension; D64.9 Anemia, unspecified; R56.9 Unspecified convulsions; F17.200 Nicotine dependence, unspecified, uncomplicated; Z88.0 Allergy status to penicillin; Y09 Assault by unspecified means; Y90.9 Presence of alcohol in blood, level not specified
CPT/HCPCS: 36415; 71045; 80053; 81003; 83605; 83690; 85025; 85610; 93005; 99285; Z7610

== ENCOUNTER 2017-11-04 13:50 | Emergency (ER) | payer MEDICAID ==
[~2017-11-04] VITALS: Ht 170.2 cm; Wt 81.0 kg
[2017-11-04] MEDS ORDERED: SODIUM CHLORIDE 0.9% 1,000 ML IV ONE (14:00)
[2017-11-04] MEDS ORDERED: ONDANSETRON HCL 4MG/2ML VIAL IV STA (14:00)
[2017-11-04] MEDS ORDERED: FAMOTIDINE 20MG/2ML VIAL IV ONE (14:00)
[2017-11-04 15:05] LABS: BASOPHILS % 0.5 % (0.0-2.0); EOSINOPHILS % 0.5 % (0.0-5.0); HEMATOCRIT. 35.4 % (42.0-52.0); HEMOGLOBIN. 12.1 g/dL (14.0-18.0); LYMPHOCYTES % 40.3 % (20.0-50.0); MEAN CORPUSCULAR VOLUME 96.5 fL (80.0-94.0); MEAN PLATELET VOLUME 7.8 fl (7.4-10.4); MONOCYTES % 9.6 % (2.0-8.0); NEUTROPHILS % 49.1 % (40.0-76.0); PLATELET 110 x1000/uL (130-400); RED BLOOD CELL COUNT 3.68 mill/uL (4.7-6.1); RED CELL DISTRIBUTION WIDTH 14.9 % (11.6-14.6)
[2017-11-04 15:10] LABS: CHLORIDE 105 mEq/L (98-107)
[2017-11-04 15:13] LABS: INR 1.1; PARTIAL THROMBOPLASTIN TIME 26.1 sec (23.4-31.0); PROTHROMBIN TIME 11.4 sec (9.4-11.6)
[2017-11-04 15:36] LABS: ETHANOL BLOOD 346 mg/dL
[2017-11-04 17:36] LABS: *AMPHETAMINES SCREEN URINE NEGATIVE (NEGATIVE); *BARBITURATES SCREEN URINE NEGATIVE (NEGATIVE); *BENZODIAZEPINES SCREEN URINE PRESUMTIVE POSITIVE (NEGATIVE); *COCAINE SCREEN URINE NEGATIVE (NEGATIVE); METHADONE URINE SCREEN NEGATIVE (NEGATIVE); OPIATES URINE SCREEN NEGATIVE (NEGATIVE)
[2017-11-04 17:37] LABS: CANNABINOID URINE SCREEN NEGATIVE (NEGATIVE); PHENCYCLIDINE URINE SCREEN NEGATIVE (NEGATIVE)
[2017-11-04] MEDS ORDERED: ONDANSETRON HCL 4MG/2ML VIAL IV SCH (18:30)
[2017-11-04] MEDS ORDERED: FAMOTIDINE 20MG/2ML VIAL IV SCH (18:30)
[2017-11-04 19:09] VITALS: BP 115/84
== END 2017-11-05 00:41 | disposition home or self-care (01) ==
LOC: ER 13:50
DX: G92 Toxic encephalopathy (principal); T51.91XA Toxic effect of unspecified alcohol, accidental (unintentional), initial encounter; Y92.9 Unspecified place or not applicable; R10.9 Unspecified abdominal pain; E87.6 Hypokalemia; R11.10 Vomiting, unspecified; I10 Essential (primary) hypertension; R56.9 Unspecified convulsions; F17.200 Nicotine dependence, unspecified, uncomplicated; Z88.0 Allergy status to penicillin
CPT/HCPCS: 36415; 71045; 80053; 80305; 83690; 85025; 85610; 85730; 96361; 96374; 96375; 99285; G0482; J2405; J3490; J7030

== ENCOUNTER 2017-11-14 13:48 | Emergency (ER) | payer MEDICAID ==
[~2017-11-14] VITALS: Ht 172.7 cm; Wt 76.0 kg
[2017-11-14] MEDS ORDERED: ONDANSETRON 4MG ODT PO ONE (14:45)
[2017-11-14 15:01] LABS: BASOPHILS % 0.4 % (0.0-2.0); EOSINOPHILS % 0.9 % (0.0-5.0); HEMATOCRIT. 37.6 % (42.0-52.0); HEMOGLOBIN. 12.8 g/dL (14.0-18.0); MEAN CORPUSCULAR HEMOGLOBIN 33.3 pg (28.0-32.0); MEAN PLATELET VOLUME 7.2 fl (7.4-10.4); MONOCYTES % 12.6 % (2.0-8.0); NEUTROPHILS % 35.1 % (40.0-76.0); PLATELET 108 x1000/uL (130-400); RED BLOOD CELL COUNT 3.84 mill/uL (4.7-6.1)
[2017-11-14 15:05] LABS: CHLORIDE 110 mEq/L (98-107)
[2017-11-14 15:21] LABS: CLARITY URINE CLEAR (CLEAR); COLOR URINE YELLOW (YELLOW); KETONES URINE NEGATIVE (NEGATIVE); LEUKOCYTE ESTERASE URINE NEGATIVE (NEGATIVE); NITRITE URINE NEGATIVE (NEGATIVE); OCCULT BLOOD URINE NEGATIVE (NEGATIVE); PH URINE 5.5 (4.5-8.0); PROTEIN URINE TRACE (NEGATIVE); SPECIFIC GRAVITY URINE 1.004 (1.005-1.030); UROBILINOGEN URINE 0.2 E.U./dL (0.2-1.0)
[2017-11-14 15:32] LABS: ETHANOL BLOOD 408 mg/dL
[2017-11-14 15:40] LABS: *AMPHETAMINES SCREEN URINE NEGATIVE (NEGATIVE); *BARBITURATES SCREEN URINE NEGATIVE (NEGATIVE); *BENZODIAZEPINES SCREEN URINE NEGATIVE (NEGATIVE); *COCAINE SCREEN URINE NEGATIVE (NEGATIVE); METHADONE URINE SCREEN NEGATIVE (NEGATIVE); OPIATES URINE SCREEN NEGATIVE (NEGATIVE)
[2017-11-14 15:41] LABS: CANNABINOID URINE SCREEN NEGATIVE (NEGATIVE); PHENCYCLIDINE URINE SCREEN NEGATIVE (NEGATIVE)
[2017-11-14] MEDS ORDERED: FOLIC ACID 1 MG, THIAMINE HCL 100 MG, MVI, ADULT NO.1 10 ML in DEXTROSE 5% WATER 1,000 ML IV ONE ×4 (20:00)
[2017-11-16 00:11] VITALS: BP 128/69
== END 2017-11-16 00:19 | disposition home or self-care (01) ==
LOC: ER 14:00
DX: F10.129 Alcohol abuse with intoxication, unspecified (principal); R45.851 Suicidal ideations; R10.13 Epigastric pain; Y90.8 Blood alcohol level of 240 mg/100 ml or more; Z88.0 Allergy status to penicillin
CPT/HCPCS: 36415; 80053; 80305; 80307; 80329; 81003; 83690; 85025; 96365; 96366; 99285; G0482; J3411; J3490; J7070; Q0162; Z7610

== ENCOUNTER 2017-12-03 01:34 | Emergency (ER) | payer MEDICAID ==
[~2017-12-03] VITALS: Ht 172.7 cm; Wt 77.0 kg
[2017-12-03 01:38] VITALS: BP 114/86
== END 2017-12-03 03:00 | disposition left against medical advice (07) ==
LOC: ER 01:34
DX: R10.9 Unspecified abdominal pain (principal); Z53.21 Procedure and treatment not carried out due to patient leaving prior to being seen by health care provider

== ENCOUNTER 2017-12-06 23:28 | Emergency (ER) | payer MEDICAID ==
[~2017-12-06] VITALS: Ht 167.6 cm; Wt 68.0 kg
[2017-12-07] MEDS ORDERED: SODIUM CHLORIDE 0.9% 1,000 ML IV ONE (00:16)
[2017-12-07] MEDS ORDERED: LEVETIRACETAM 500MG PREMIX 100 ML IV ONE (00:30)
[2017-12-07] MEDS ORDERED: LEVETIRACETAM 500MG TABLET PO ONE (00:30)
[2017-12-07 00:44] LABS: BASOPHILS % 0.8 % (0.0-2.0); EOSINOPHILS % 0.7 % (0.0-5.0); HEMATOCRIT. 35.3 % (42.0-52.0); HEMOGLOBIN. 11.9 g/dL (14.0-18.0); LYMPHOCYTES % 62.7 % (20.0-50.0); MEAN CORPUSCULAR HEMOGLOBIN 33.4 pg (28.0-32.0); MEAN CORPUSCULAR VOLUME 98.7 fL (80.0-94.0); MEAN PLATELET VOLUME 6.5 fl (7.4-10.4); NEUTROPHILS % 26.8 % (40.0-76.0); PLATELET 129 x1000/uL (130-400); RED BLOOD CELL COUNT 3.58 mill/uL (4.7-6.1); RED CELL DISTRIBUTION WIDTH 18.3 % (11.6-14.6)
[2017-12-07 00:48] LABS: CHLORIDE 114 mEq/L (98-107)
[2017-12-07 00:55] LABS: *BARBITURATES SCREEN URINE NEGATIVE (NEGATIVE); *BENZODIAZEPINES SCREEN URINE NEGATIVE (NEGATIVE); *COCAINE SCREEN URINE NEGATIVE (NEGATIVE); METHADONE URINE SCREEN NEGATIVE (NEGATIVE); OPIATES URINE SCREEN NEGATIVE (NEGATIVE); PHENCYCLIDINE URINE SCREEN NEGATIVE (NEGATIVE)
[2017-12-07 00:56] LABS: CANNABINOID URINE SCREEN NEGATIVE (NEGATIVE)
[2017-12-07 00:58] LABS: *AMPHETAMINES SCREEN URINE NEGATIVE (NEGATIVE)
[2017-12-07 01:01] LABS: ETHANOL BLOOD 445 mg/dL
[2017-12-07 06:20] VITALS: BP 89/45
== END 2017-12-07 06:49 | disposition home or self-care (01) ==
LOC: ER 23:33
DX: T51.0X1A Toxic effect of ethanol, accidental (unintentional), initial encounter (principal); G92 Toxic encephalopathy; Y90.8 Blood alcohol level of 240 mg/100 ml or more; G40.909 Epilepsy, unspecified, not intractable, without status epilepticus; F10.280 Alcohol dependence with alcohol-induced anxiety disorder; I10 Essential (primary) hypertension; Y92.89 Other specified places as the place of occurrence of the external cause; F17.210 Nicotine dependence, cigarettes, uncomplicated; E87.8 Other disorders of electrolyte and fluid balance, not elsewhere classified
CPT/HCPCS: 36415; 80048; 80305; 80307; 80329; 85025; 96365; 99284; G0482; J1953; J7030

== ENCOUNTER 2017-12-09 01:53 | Emergency (ER) | payer MEDICAID ==
[~2017-12-09] VITALS: Ht 165.1 cm; Wt 66.0 kg
[2017-12-09] MEDS ORDERED: ONDANSETRON 4MG ODT PO SCH (08:45)
[2017-12-09 08:59] VITALS: BP 130/92
== END 2017-12-09 09:04 | disposition home or self-care (01) ==
LOC: ER 02:49
DX: F10.229 Alcohol dependence with intoxication, unspecified (principal); Y90.8 Blood alcohol level of 240 mg/100 ml or more; R03.0 Elevated blood-pressure reading, without diagnosis of hypertension; G40.909 Epilepsy, unspecified, not intractable, without status epilepticus; Z88.0 Allergy status to penicillin
CPT/HCPCS: 99283; Q0162

== ENCOUNTER 2017-12-09 21:50 | Emergency (ER) | payer MEDICAID ==
[~2017-12-09] VITALS: Ht 160 cm; Wt 66.0 kg
[2017-12-09 21:52] VITALS: BP 125/81
== END 2017-12-10 00:10 | disposition left against medical advice (07) ==
LOC: ER 22:06
DX: Z53.21 Procedure and treatment not carried out due to patient leaving prior to being seen by health care provider (principal); Z88.0 Allergy status to penicillin

== ENCOUNTER 2017-12-11 03:15 | Emergency (ER) | payer MEDICAID ==
[~2017-12-11] VITALS: Ht 170.2 cm; Wt 69.0 kg
[2017-12-11 14:14] VITALS: BP 138/96
== END 2017-12-11 14:20 | disposition home or self-care (01) ==
LOC: ER 03:15
DX: F10.229 Alcohol dependence with intoxication, unspecified (principal); Z88.0 Allergy status to penicillin; Y90.8 Blood alcohol level of 240 mg/100 ml or more
CPT/HCPCS: 36415; 99283; G0482

== ENCOUNTER 2017-12-12 00:05 | Emergency (ER) | payer MEDICAID ==
[~2017-12-12] VITALS: Ht 165.1 cm; Wt 65.0 kg
[2017-12-12 08:48] LABS: BASOPHILS % 0.8 % (0.0-2.0); HEMATOCRIT. 38.8 % (42.0-52.0); HEMOGLOBIN. 13.1 g/dL (14.0-18.0); LYMPHOCYTES % 52.7 % (20.0-50.0); MEAN CORPUSCULAR HEMOGLOBIN 33.3 pg (28.0-32.0); MEAN CORPUSCULAR VOLUME 98.4 fL (80.0-94.0); MEAN PLATELET VOLUME 7.2 fl (7.4-10.4); MONOCYTES % 5.4 % (2.0-8.0); NEUTROPHILS % 40.1 % (40.0-76.0); PLATELET 143 x1000/uL (130-400); RED BLOOD CELL COUNT 3.94 mill/uL (4.7-6.1); RED CELL DISTRIBUTION WIDTH 17.9 % (11.6-14.6)
[2017-12-12 08:56] LABS: CHLORIDE 108 mEq/L (98-107)
[2017-12-12 08:59] LABS: COLOR URINE YELLOW (YELLOW); KETONES URINE NEGATIVE (NEGATIVE); LEUKOCYTE ESTERASE URINE 2+ (NEGATIVE); NITRITE URINE NEGATIVE (NEGATIVE); OCCULT BLOOD URINE TRACE (NEGATIVE); PROTEIN URINE TRACE (NEGATIVE); SPECIFIC GRAVITY URINE 1.015 (1.005-1.030); UROBILINOGEN URINE 0.2 E.U./dL (0.2-1.0)
[2017-12-12 09:04] LABS: CLARITY URINE SL HAZY (CLEAR)
[2017-12-12 09:10] LABS: ETHANOL BLOOD 344 mg/dL
[2017-12-12 09:46] LABS: *AMPHETAMINES SCREEN URINE NEGATIVE (NEGATIVE); *BARBITURATES SCREEN URINE NEGATIVE (NEGATIVE); *BENZODIAZEPINES SCREEN URINE NEGATIVE (NEGATIVE); *COCAINE SCREEN URINE NEGATIVE (NEGATIVE); CANNABINOID URINE SCREEN NEGATIVE (NEGATIVE); OPIATES URINE SCREEN NEGATIVE (NEGATIVE); PHENCYCLIDINE URINE SCREEN NEGATIVE (NEGATIVE)
[2017-12-12 09:47] LABS: METHADONE URINE SCREEN NEGATIVE (NEGATIVE)
[2017-12-12] MEDS ORDERED: SULFAMETHOXAZOLE/TRIMETHOPRIM 800/160MG TABLET PO ONE (14:00)
[2017-12-13] MEDS ORDERED: SULFAMETHOXAZOLE/TRIMETHOPRIM 400/80MG TAB PO ONE (14:30)
[2017-12-13] MEDS ORDERED: SULFAMETHOXAZOLE/TRIMETHOPRIM 400/80MG TAB PO NR (16:18)
[2017-12-14 16:10] VITALS: BP 122/77
== END 2017-12-14 16:14 | disposition home or self-care (01) ==
LOC: ER 00:05
DX: F32.3 Major depressive disorder, single episode, severe with psychotic features (principal); R45.851 Suicidal ideations; F10.229 Alcohol dependence with intoxication, unspecified; Y90.8 Blood alcohol level of 240 mg/100 ml or more; N39.0 Urinary tract infection, site not specified; G40.909 Epilepsy, unspecified, not intractable, without status epilepticus; F17.210 Nicotine dependence, cigarettes, uncomplicated
CPT/HCPCS: 36415; 80053; 80305; 81003; 85025; 87086; 93005; 99285; G0482

== ENCOUNTER 2017-12-27 01:34 | Emergency (ER) | payer MEDICAID ==
[~2017-12-27] VITALS: Ht 167.6 cm; Wt 63.5 kg
[2017-12-27 08:17] LABS: BASOPHILS % 0.8 % (0.0-2.0); EOSINOPHILS % 1.1 % (0.0-5.0); HEMATOCRIT. 39.5 % (42.0-52.0); HEMOGLOBIN. 13.3 g/dL (14.0-18.0); LYMPHOCYTES % 50.6 % (20.0-50.0); MEAN CORPUSCULAR HEMOGLOBIN 33.2 pg (28.0-32.0); MEAN CORPUSCULAR VOLUME 98.5 fL (80.0-94.0); MEAN PLATELET VOLUME 7.3 fl (7.4-10.4); MONOCYTES % 8.3 % (2.0-8.0); NEUTROPHILS % 39.2 % (40.0-76.0); PLATELET 193 x1000/uL (130-400); RED BLOOD CELL COUNT 4.01 mill/uL (4.7-6.1); RED CELL DISTRIBUTION WIDTH 17.3 % (11.6-14.6)
[2017-12-27 08:25] LABS: CHLORIDE 107 mEq/L (98-107)
[2017-12-27 08:34] LABS: ETHANOL BLOOD 213 mg/dL
[2017-12-27 10:35] LABS: CLARITY URINE CLEAR (CLEAR); KETONES URINE NEGATIVE (NEGATIVE); LEUKOCYTE ESTERASE URINE NEGATIVE (NEGATIVE); NITRITE URINE NEGATIVE (NEGATIVE); OCCULT BLOOD URINE NEGATIVE (NEGATIVE); PH URINE 6.5 (4.5-8.0); PROTEIN URINE NEGATIVE (NEGATIVE); SPECIFIC GRAVITY URINE 1.003 (1.005-1.030); UROBILINOGEN URINE 0.2 E.U./dL (0.2-1.0)
[2017-12-27 10:36] LABS: COLOR URINE PALE YELLOW (YELLOW)
[2017-12-27 11:31] LABS: *AMPHETAMINES SCREEN URINE NEGATIVE (NEGATIVE)
[2017-12-27 11:32] LABS: *BARBITURATES SCREEN URINE NEGATIVE (NEGATIVE); *BENZODIAZEPINES SCREEN URINE NEGATIVE (NEGATIVE); *COCAINE SCREEN URINE NEGATIVE (NEGATIVE); METHADONE URINE SCREEN NEGATIVE (NEGATIVE); OPIATES URINE SCREEN NEGATIVE (NEGATIVE); PHENCYCLIDINE URINE SCREEN NEGATIVE (NEGATIVE)
[2017-12-27 11:33] LABS: CANNABINOID URINE SCREEN NEGATIVE (NEGATIVE)
[2017-12-27 13:35] VITALS: BP 122/74
== END 2017-12-27 15:11 | disposition home or self-care (01) ==
LOC: ER 01:34
DX: F10.229 Alcohol dependence with intoxication, unspecified (principal); Y90.7 Blood alcohol level of 200-239 mg/100 ml; Z88.0 Allergy status to penicillin
CPT/HCPCS: 36415; 70450; 80053; 80305; 80307; 80329; 81003; 85025; 99285; G0482

== ENCOUNTER 2018-02-04 23:47 | Emergency (ER) | payer MEDICAID ==
[~2018-02-04] VITALS: Ht 165.1 cm; Wt 72.0 kg
[2018-02-05 03:08] LABS: BASOPHILS % 0.7 % (0.0-2.0); EOSINOPHILS % 2.7 % (0.0-5.0); HEMATOCRIT. 40.2 % (42.0-52.0); HEMOGLOBIN. 13.6 g/dL (14.0-18.0); LYMPHOCYTES % 40.9 % (20.0-50.0); MEAN CORPUSCULAR HEMOGLOBIN 32.1 pg (28.0-32.0); MEAN CORPUSCULAR VOLUME 94.8 fL (80.0-94.0); MEAN PLATELET VOLUME 7.4 fl (7.4-10.4); MONOCYTES % 11.6 % (2.0-8.0); NEUTROPHILS % 44.1 % (40.0-76.0); PLATELET 270 x1000/uL (130-400); RED BLOOD CELL COUNT 4.24 mill/uL (4.7-6.1); RED CELL DISTRIBUTION WIDTH 15.4 % (11.6-14.6)
[2018-02-05 03:11] LABS: CLARITY URINE CLEAR (CLEAR); COLOR URINE YELLOW (YELLOW); KETONES URINE NEGATIVE (NEGATIVE); LEUKOCYTE ESTERASE URINE 1+ (NEGATIVE); NITRITE URINE NEGATIVE (NEGATIVE); OCCULT BLOOD URINE NEGATIVE (NEGATIVE); PROTEIN URINE NEGATIVE (NEGATIVE); UROBILINOGEN URINE 0.2 E.U./dL (0.2-1.0)
[2018-02-05 03:15] LABS: CHLORIDE 105 mEq/L (98-107)
[2018-02-05 03:19] LABS: ETHANOL BLOOD < 10 mg/dL
[2018-02-05 03:23] LABS: *AMPHETAMINES SCREEN URINE NEGATIVE (NEGATIVE); *BARBITURATES SCREEN URINE NEGATIVE (NEGATIVE); *BENZODIAZEPINES SCREEN URINE PRESUMTIVE POSITIVE (NEGATIVE); *COCAINE SCREEN URINE NEGATIVE (NEGATIVE); METHADONE URINE SCREEN NEGATIVE (NEGATIVE); OPIATES URINE SCREEN NEGATIVE (NEGATIVE); PHENCYCLIDINE URINE SCREEN NEGATIVE (NEGATIVE)
[2018-02-05 03:24] LABS: CANNABINOID URINE SCREEN PRESUMTIVE POSITIVE (NEGATIVE)
[2018-02-05 03:55] LABS: CARBAMAZEPINE < 0.5 ug/mL (4-12); VALPROIC ACID < 3.0 ug/mL (50-100)
[2018-02-05] MEDS ORDERED: LEVETIRACETAM 500MG TABLET PO ONE (06:30)
[2018-02-05 12:32] VITALS: BP 120/74
== END 2018-02-05 12:34 | disposition home or self-care (01) ==
LOC: ER 23:57
DX: R45.851 Suicidal ideations (principal); I10 Essential (primary) hypertension; F12.10 Cannabis abuse, uncomplicated; Z04.6 Encounter for general psychiatric examination, requested by authority; Z88.0 Allergy status to penicillin; Z79.899 Other long term (current) drug therapy
CPT/HCPCS: 36415; 80053; 80156; 80165; 80185; 80305; 80307; 80329; 81003; 84443; 85025; 93005; 99285; G0482

== ENCOUNTER 2018-02-08 03:40 | Emergency (ER) | payer MEDICAID ==
[~2018-02-08] VITALS: Ht 165.1 cm; Wt 73.0 kg
[2018-02-08 04:33] LABS: HEMATOCRIT. 38.7 % (42.0-52.0); HEMOGLOBIN. 12.9 g/dL (14.0-18.0); MEAN CORPUSCULAR HEMOGLOBIN 31.6 pg (28.0-32.0); MEAN CORPUSCULAR VOLUME 94.9 fL (80.0-94.0); MEAN PLATELET VOLUME 7.3 fl (7.4-10.4); PLATELET 233 x1000/uL (130-400); RED BLOOD CELL COUNT 4.08 mill/uL (4.7-6.1); RED CELL DISTRIBUTION WIDTH 15.5 % (11.6-14.6)
[2018-02-08 04:37] LABS: CHLORIDE 111 mEq/L (98-107)
[2018-02-08 05:55] VITALS: BP 107/74
[2018-02-08 06:36] LABS: PLATELET ESTIMATE NORMAL
== END 2018-02-08 06:03 | disposition home or self-care (01) ==
LOC: ER 04:00
DX: R09.89 Other specified symptoms and signs involving the circulatory and respiratory systems (principal); I10 Essential (primary) hypertension; G40.909 Epilepsy, unspecified, not intractable, without status epilepticus; J45.909 Unspecified asthma, uncomplicated; F17.200 Nicotine dependence, unspecified, uncomplicated; F12.10 Cannabis abuse, uncomplicated
CPT/HCPCS: 36415; 71045; 80053; 84484; 85025; 85379; 93005; 99285

== ENCOUNTER 2018-08-25 16:06 | Emergency (ER) | payer MEDICAID ==
[~2018-08-25] VITALS: Ht 167.6 cm; Wt 79.0 kg
[2018-08-25] MEDS ORDERED: LEVETIRACETAM 500MG TABLET PO ONE (17:45)
[2018-08-25] MEDS ORDERED: ARIPIPRAZOLE 10MG TABLET PO ONE (17:45)
[2018-08-25] MEDS: QUETIAPINE FUMARATE 100MG TABLET PO SCH (18:12)
[2018-08-25 18:53] LABS: EOSINOPHILS % 0.9 % (0.0-5.0); HEMATOCRIT. 42.4 % (42.0-52.0); HEMOGLOBIN. 14.4 g/dL (14.0-18.0); LYMPHOCYTES % 49.1 % (20.0-50.0); MEAN CORPUSCULAR HEMOGLOBIN 29.5 pg (28.0-32.0); MEAN CORPUSCULAR VOLUME 86.9 fL (80.0-94.0); MEAN PLATELET VOLUME 7.6 fl (7.4-10.4); MONOCYTES % 7.8 % (2.0-8.0); NEUTROPHILS % 41.2 % (40.0-76.0); PLATELET 216 x1000/uL (130-400); RED BLOOD CELL COUNT 4.88 mill/uL (4.7-6.1); RED CELL DISTRIBUTION WIDTH 15.8 % (11.6-14.6)
[2018-08-25 18:57] LABS: CHLORIDE 109 mEq/L (98-107)
[2018-08-25 19:00] LABS: ETHANOL BLOOD 282 mg/dL
[2018-08-25 19:09] LABS: *BARBITURATES SCREEN URINE NEGATIVE (NEGATIVE); *BENZODIAZEPINES SCREEN URINE PRESUMTIVE POSITIVE (NEGATIVE); *COCAINE SCREEN URINE NEGATIVE (NEGATIVE)
[2018-08-25 19:10] LABS: *AMPHETAMINES SCREEN URINE NEGATIVE (NEGATIVE); CANNABINOID URINE SCREEN PRESUMTIVE POSITIVE (NEGATIVE); METHADONE URINE SCREEN NEGATIVE (NEGATIVE); OPIATES URINE SCREEN NEGATIVE (NEGATIVE); PHENCYCLIDINE URINE SCREEN NEGATIVE (NEGATIVE)
[2018-08-25] MEDS: LEVETIRACETAM 500MG TABLET PO SCH (21:09)
[2018-08-26] MEDS: QUETIAPINE FUMARATE 100MG TABLET PO SCH (09:00)
[2018-08-26] MEDS: LEVETIRACETAM 500MG TABLET PO SCH (09:00)
[2018-08-26 15:00] VITALS: BP 119/85
== END 2018-08-26 15:24 | disposition home or self-care (01) ==
LOC: ER 16:15
DX: R45.851 Suicidal ideations (principal); F20.9 Schizophrenia, unspecified; R56.9 Unspecified convulsions; I10 Essential (primary) hypertension; J45.909 Unspecified asthma, uncomplicated; F10.129 Alcohol abuse with intoxication, unspecified; Y90.5 Blood alcohol level of 100-119 mg/100 ml
CPT/HCPCS: 36415; 80048; 80305; 80307; 80320; 80329; 99284; G0480

== ENCOUNTER 2018-12-17 14:59 | Emergency (ER) | payer MEDICAID ==
[~2018-12-17] VITALS: Ht 165.1 cm; Wt 86.0 kg
[2018-12-18 00:52] LABS: BASOPHILS % 0.9 % (0.0-2.0); EOSINOPHILS % 0.8 % (0.0-5.0); HEMATOCRIT. 38.4 % (42.0-52.0); HEMOGLOBIN. 12.7 g/dL (14.0-18.0); LYMPHOCYTES % 33.4 % (20.0-50.0); MEAN CORPUSCULAR HEMOGLOBIN 29.6 pg (28.0-32.0); MEAN CORPUSCULAR VOLUME 89.7 fL (80.0-94.0); MEAN PLATELET VOLUME 7.4 fl (7.4-10.4); MONOCYTES % 11.3 % (2.0-8.0); NEUTROPHILS % 53.6 % (40.0-76.0); PLATELET 242 x1000/uL (130-400); RED BLOOD CELL COUNT 4.28 mill/uL (4.7-6.1); RED CELL DISTRIBUTION WIDTH 18.9 % (11.6-14.6)
[2018-12-18 01:04] LABS: CHLORIDE 103 mEq/L (98-107)
[2018-12-18 01:09] LABS: ETHANOL BLOOD < 10 mg/dL
[2018-12-18 02:17] LABS: CLARITY URINE CLEAR (CLEAR); COLOR URINE YELLOW (YELLOW); KETONES URINE TRACE (NEGATIVE); LEUKOCYTE ESTERASE URINE TRACE (NEGATIVE); NITRITE URINE NEGATIVE (NEGATIVE); OCCULT BLOOD URINE TRACE (NEGATIVE); PROTEIN URINE TRACE (NEGATIVE); SPECIFIC GRAVITY URINE 1.025 (1.005-1.030); UROBILINOGEN URINE 0.2 E.U./dL (0.2-1.0)
[2018-12-18 02:28] LABS: *BARBITURATES SCREEN URINE PRESUMTIVE POSITIVE (NEGATIVE)
[2018-12-18 02:29] LABS: *AMPHETAMINES SCREEN URINE NEGATIVE (NEGATIVE); *BENZODIAZEPINES SCREEN URINE NEGATIVE (NEGATIVE); *COCAINE SCREEN URINE NEGATIVE (NEGATIVE); CANNABINOID URINE SCREEN PRESUMTIVE POSITIVE (NEGATIVE); METHADONE URINE SCREEN NEGATIVE (NEGATIVE); OPIATES URINE SCREEN NEGATIVE (NEGATIVE); PHENCYCLIDINE URINE SCREEN NEGATIVE (NEGATIVE)
[2018-12-18] MEDS: LEVETIRACETAM 500MG TABLET PO SCH (21:25)
[2018-12-19] MEDS ORDERED: HYDROCHLOROTHIAZIDE 25MG TABLET PO SCH (09:00)
[2018-12-19] MEDS: LEVETIRACETAM 500MG TABLET PO SCH ×2 (10:19→21:40)
[2018-12-20] MEDS ORDERED: LORAZEPAM 1MG TABLET PO ONE
[2018-12-20 08:40] VITALS: BP 135/93
== END 2018-12-20 08:58 | disposition home or self-care (01) ==
LOC: ER 14:59
DX: R45.851 Suicidal ideations (principal); G40.909 Epilepsy, unspecified, not intractable, without status epilepticus; F20.9 Schizophrenia, unspecified; I10 Essential (primary) hypertension; F17.200 Nicotine dependence, unspecified, uncomplicated; F12.10 Cannabis abuse, uncomplicated
CPT/HCPCS: 36415; 99284

== ENCOUNTER 2020-03-05 13:32 | Emergency (ER) | payer MEDICAID ==
[~2020-03-05] VITALS: Ht 167.6 cm; Wt 95.5 kg
[2020-03-05 16:45] VITALS: BP 143/98
== END 2020-03-05 16:39 | disposition home or self-care (01) ==
LOC: ER 13:32
DX: J06.9 Acute upper respiratory infection, unspecified (principal); R09.81 Nasal congestion; G40.909 Epilepsy, unspecified, not intractable, without status epilepticus; I10 Essential (primary) hypertension; F32.9 Major depressive disorder, single episode, unspecified; F12.10 Cannabis abuse, uncomplicated
CPT/HCPCS: 93005; 99283